=== PATIENT | male | born 1930 | race Caucasian/White ===

== ENCOUNTER 2016-11-26 15:31 | Inpatient (IN) | payer OTHER, MEDICARE ==
[2016-11-26 15:51] VITALS: BMI 19.6
[2016-11-26 16:00] LABS: BASOPHIL 0.7 % (0-2.0); EOSINOPHIL 0.3 % (0-4.5); MCH 29.7 pg (25.7-33.7); MCHC 33.7 g/dl (32.0-35.9); MEAN CELL VOLUME 88.2 fl (80-96); NEUTROPHILS 77.4 % (42.8-82.8); PLATELET COUNT 203 K/MM3 (134-434); RDW 13.8 % (11.9-15.9); WHITE BLOOD COUNT 4.1 K/mm3 (4.0-10.8)
--- NOTE | 2016-11-26 16:01 | PDOC ---
History of Present Illness - History of Present Illness Initial Comments: 11/26/16 16:47 Chief Complaint: difficulty swallowing. HPI: Patient was brought in to his PCP by his son. PCP, Dr. Peoples, noted the patient was hypotensive and sent him to the ED. Patient himself has no complaints other than difficulty swallowing and resulted dec oral intake. Difficulty swallowing has been present for a number of months, but the patient has refused further workup. ROS: difficulty swallowing, decreased oral intake of floods and fluids. Otherwise no fever or chills or other signs of infection. No chest or abd pain, no SOB. remainder of system reviewed negative PMHx: Chronic renal failure, on dialysis, dysphagia as noted above without characterization, dementia SHx: Patient lives by himself, takes care of himself, refuses to have assistance other than his family, has a son and grandson who visits regularly, responsible for his own meals, no known use of tobacco, alcohol or drugs. FHx: reviewed with son, is noncontributory to this illness. <Bindu To - Last Filed: 11/26/16 16:47> <Reji Cuevas - Last Filed: 11/27/16 08:05> - General Chief Complaint: Injury Stated Complaint: FALL Time Seen by Provider: 11/26/16 15:46 Past History <Bindu To - Last Filed: 11/26/16 16:47> - Past Medical History Anemia: No Asthma: No Cancer: No Cardiac Disorders: Yes (CHF,ATRIAL FIBRILLATION) CVA: No COPD: No CHF: No Dementia: No Diabetes: Yes (type II) Dialysis: Yes () GI Disorders: Yes Disorders: No HTN: Yes Hypercholesterolemia: Yes Liver Disease: No Seizures: No Thyroid Disease: No Other medical history: ESRD - Surgical History Abdominal Surgery: No Appendectomy: No Cardiac Surgery: No Cholecystectomy: No Lung Surgery: No Neurologic Surgery: No Orthopedic Surgery: No - Psycho/Social/Smoking Cessation Hx Anxiety: No Suicidal Ideation: No Smoking Status: No Smoking History: Unknown if ever smoked Number of Cigarettes Smoked Daily: 0 Hx Alcohol Use: No Drug/Substance Use Hx: No Substance Use Type: None Hx Substance Use Treatment: No <Reji Cuevas - Last Filed: 11/27/16 08:05> - Past Medical History Allergies/Adverse Reactions: Allergies Allergy/AdvReac Type Severity Reaction Status Date / Time Penicillins Allergy Intermediate rash Verified 11/26/16 15:40 Sulfa (Sulfonamide Allergy Intermediate rash Verified 11/26/16 15:40 Antibiotics) Home Medications: Ambulatory Orders Beta-Carotene(A) W-C and E/Min 1 tab PO DAILY 11/27/16 Metoprolol Succinate [Toprol Xl] 50 mg PO DAILY 11/27/16 Polyethylene Glycol 3350 [Miralax 255 gm Btl -] 17 grams PO DAILY 11/27/16 Simvastatin [Zocor -] 40 mg PO DAILY 11/27/16 Theragen 1 tablet PO DAILY 11/27/16 Warfarin Na [Coumadin -] 4 mg PO 11/27/16 Warfarin Na [Coumadin -] 5 mg PO 11/27/16 *Physical Exam - Vital Signs Last Vital Signs Temp Pulse Resp BP Pulse Ox 97.3 F L 93 H 18 97/55 100 11/26/16 15:34 11/26/16 16:32 11/26/16 15:34 11/26/16 16:32 11/26/16 15:34 <Bindu To A - Last Filed: 11/26/16 16:47> - Vital Signs Last Vital Signs Temp Pulse Resp BP Pulse Ox 97.3 F L 100 H 18 87/65 100 11/26/16 15:34 11/26/16 15:34 11/26/16 15:34 11/26/16 15:34 11/26/16 15:34 <Reji Cuevas - Last Filed: 11/27/16 08:05> ED Treatment Course - LABORATORY CBC & Chemistry Diagram: 11/26/16 15:49 11/26/16 15:49 - ADDITIONAL ORDERS Additional order review: Laboratory Results 11/26/16 15:49 INR 1.03 D 11/26/16 15:49 RBC 4.56 MCV 88.2 MCHC 33.7 RDW 13.8 MPV 9.0 Neutrophils % 77.4 Lymphocytes % 14.7 Monocytes % 6.9 Eosinophils % 0.3 Basophils % 0.7 <Bindu To - Last Filed: 11/26/16 16:47> - LABORATORY CBC & Chemistry Diagram: 11/26/16 15:49 11/26/16 15:49 <MasonReji - Last Filed: 11/27/16 08:05> Medical Decision Making - Medical Decision Making 11/26/16 16:34 Patient with dysphagia, difficulty swallowing for many months, has refused medical evaluation for this problem. Has been losing weight and regurgitating all by mouth intake. Brought by his son today to see primary physician who noted a low blood pressure and referred him to the emergency room patient's only complaint is difficulty swallowing. However, the son noticed some asymmetry of the lower face on the left which he thinks is new. The patient has continued to drive himself to dialysis and to ambulate without difficulty Patient has renal failure which is chronic and probably due to a combination of diabetes and high blood pressure. He has chronic atrial fibrillation. He has not seen his primary physician in over 2 years, according to his son, and although he is prescribed medication it is fairly certain that he has not obtain prescriptions in over a year and it is likely that he has not been taking his prescriptions as directed. He has been distraught over the recent [facility] placement of his . In addition, the patient tripped at home and fell against a table, injuring his left rib cage several days ago. He complains about pain over the anterior left rib cage and is tender to palpation, although there is no bruising and there is no crepitus or deformity. His lungs are clear. Remainder of physical exam, except for the left lower facial palsy and generalized weakness is negative. Evaluation of this complex patient is involves reassessment of his many medical and social problems Difficulty swallowing with decreased oral intake and regurgitation of most food and fluids. Has refused medical evaluation for this problem in the past, but today he agrees to undergo further testing Increasing inability to take care of himself at home. Lives alone, and has refused assistance by outside aids Has been driving himself to dialysis 3 times a week, the safety of which is uncertain Has been noncompliant with medications, including for atrial fibrillation, and noncompliant with medical follow-up, not having seen his primary physician in over 2 years Distraught over the recent [facility] placement of his , with subsequent significant depression Atrial fibrillation untreated Possible new left lower facial paralysis, TIA or CVA Chronic renal failure Bruised rib cage from a fall The hospitalist was contacted and admission was arranged. The patient will be placed on telemetry at [facility] when a bed becomes available to monitor his atrial fibrillation. His son's [facility] traffic [facility] specialist center was contacted, and agrees to accept the patient for cardiology consultation. This is Dr. Pastrana. The patient will receive his usual dialysis at [facility]. Head CT is pending because of the possible new neurologic deficit. Signed out to Dr. Barfield 7 PM pending transport. Has been stable up to this time. Patient's son has been present and fully informed <Reji Cuevas - Last Filed: 11/27/16 08:05> *DC/Admit/Observation/Transfer - Attestations Scribe Attestion: 11/26/16 16:47 Documentation prepared by Bindu To, acting as medical operations supervisor for Reji Marroquin MD. <Bindu To - Last Filed: 11/26/16 16:47> - Discharge Dispostion Admit: Yes <Reji Cuevas - Last Filed: 11/27/16 08:05> Diagnosis at time of Disposition: ESRD (end stage renal disease) on dialysis, Dehydration Atrial fibrillation Qualifiers: Atrial fibrillation type: chronic Qualified Code(s): I48.2 - Chronic atrial fibrillation CVA (cerebral vascular accident) Qualifiers: CVA mechanism: unspecified Qualified Code(s): I63.9 - Cerebral infarction, unspecified - Discharge Dispostion Condition at time of disposition: Guarded
[2016-11-26 16:42] LABS: INR 1.03 (0.82-1.09); PROTHROMBIN TIME (PATIENT) 11.5 SEC (10.2-13.0)
[2016-11-26 16:47] LABS: ALBUMIN 3.3 g/dl (3.5-5.0); ALK PHOS 129 U/L (32-92); ANION GAP 11 (8-16); BILIRUBIN,TOTAL 0.7 mg/dl (0.2-1.0); CALCIUM 9.3 mg/dl (8.4-10.2); CO2 28 mmol/L (22-28); CPK 100 IU/L (39-308); CREATININE 4.1 mg/dl (0.6-1.3); GLUCOSE,RANDOM 127 mg/dl (74-106); SGOT/AST 17 U/L (10-42); SGPT/ALT 13 U/L (10-40); TOT PROT 7.2 g/dl (6.4-8.3)
[2016-11-26 19:26] LABS: TROPONIN I (DFP) < 0.03 ng/ml (0.03-0.50)
[2016-11-26] MEDS ORDERED: SODIUM CHLORIDE 1,000 ML IV SCH (23:45)
--- NOTE | 2016-11-27 | HP ---
CHIEF COMPLAINT: hypotension [place]: [place] [facility] Chuck LudwigF F [phone] HISTORY OF PRESENT ILLNESS: This is an 86 year old male with a past medical history of ESRD/hemodialysis TThSa, Afib, CHF, HLD, DM2 who presented from his PCP office with hypotension. Pt and son report that he hasn't been to his PCP in over a year and has not taken his medications in "a long time". Pt reports that he has been having difficulty swallowing for months and that he is unable to talk in the morning and his mouth is often dry. He reports weight loss of 100 pounds. Son report that he noticed a new left sided facial droop. ER course was notable for: (1) BUN 38/Cr 4.1 (2) CT head with no acute bleed or infarct Recent Travel: pt denies PAST MEDICAL HISTORY: ESRD/dialysis Tu[facility] in [place] dementia?? HLD CHF Afib DM2 PAST SURGICAL HISTORY: L AV fistula Social History: Smoking: pt denies Alcohol: pt denies Drugs: pt denies Family History: mother , [place], unknown type, unknown age father age 50, car crash sister , heart 2 sisters alive and well Allergies Penicillins Allergy (Intermediate, Verified 11/26/16 15:40) rash Sulfa (Sulfonamide Antibiotics) Allergy (Intermediate, Verified 11/26/16 15:40) rash HOME MEDICATIONS: pt has not taken home medications in months Previous medications as follows: Beta-Carotene(A) W-C & E/Min [Ocuvite Tablet] 1 each PO DAILY #0 tablet Metoprolol Succinate [Toprol XL -] 50 mg PO DAILY #0 tab.sr.24h 07/13/13 Multivitamins Ther W-Minerals [Theragran-M -] 1 each PO DAILY #0 tablet Polyethylene Glycol 3350 [Miralax 255 gm Btl -] 17 gm PO DAILY #1 bottle Simvastatin [Zocor -] 40 mg PO DAILY #0 tablet 07/13/13 Warfarin Na [Coumadin -] 5 mg PO .SUN,MON,WED,FRI #0 tablet 07/13/13 Warfarin Na [Coumadin] 4 mg PO .THU,,SAT #0 tablet 07/13/13 REVIEW OF SYSTEMS CONSTITUTIONAL: Present: generalized weakness, malaise Absent: fever, chills, diaphoresis, loss of appetite, weight change HEENT: Absent: rhinorrhea, nasal congestion, throat pain, throat swelling, difficulty swallowing, mouth swelling, ear pain, eye pain, visual changes CARDIOVASCULAR: Absent: chest pain, syncope, palpitations, irregular heart rate, lightheadedness , peripheral edema RESPIRATORY: Absent: cough, shortness of breath, dyspnea with exertion, orthopnea, wheezing, stridor, hemoptysis GASTROINTESTINAL: Absent: abdominal pain, abdominal distension, nausea, vomiting, diarrhea, constipation, melena, hematochezia GENITOURINARY: Absent: dysuria, frequency, urgency, hesitancy, hematuria, flank pain, genital pain MUSCULOSKELETAL: Absent: myalgia, arthralgia, joint swelling, back pain, neck pain SKIN: Absent: rash, itching, pallor HEMATOLOGIC/IMMUNOLOGIC: Absent: easy bleeding, easy bruising, lymphadenopathy, frequent infections ENDOCRINE: Absent: unexplained weight gain, unexplained weight loss, heat intolerance, cold intolerance NEUROLOGIC: Present: difficulty swallowing Absent: headache, focal weakness or paresthesias, dizziness, unsteady gait, seizure, mental status changes, bladder or bowel incontinence PSYCHIATRIC: Absent: anxiety, depression, suicidal or homicidal ideation, hallucinations. PHYSICAL EXAMINATION Vital Signs - 24 hr 3 11/26/16 11/26/16 11/26/16 11/26/16 15:34 16:32 18:12 19:31 Temperature 97.3 F L Pulse Rate 100 H Pulse Rate [ 93 H 86 89 Apical] Respiratory 18 Rate Blood Pressure 87/65 Blood Pressure 97/55 106/63 98/78 [Right Arm] O2 Sat by Pulse 100 Oximetry (%) GENERAL: Awake, alert, and fully oriented, in no acute distress. HEAD: Normal with no signs of trauma. EYES: Pupils equal, round and reactive to light, extraocular movements intact, sclera anicteric, conjunctiva clear. No lid lag. EARS, NOSE, THROAT: Ears normal, nares patent, oropharynx clear without exudates. Dry mucous membranes. NECK: Normal range of motion, supple without lymphadenopathy, JVD, or masses. LUNGS: Breath sounds equal, clear to auscultation bilaterally. No wheezes, and no crackles. No accessory muscle use. HEART: Regular rate and rhythm, normal S1 and S2 without rub or gallop. + murmur 2/6 5th ICS, MCL ABDOMEN: Soft, nontender, not distended, normoactive bowel sounds, no guarding, no rebound, no masses. No hepatomegaly or splenomegaly. MUSCULOSKELETAL: Normal range of motion at all joints. No bony deformities or tenderness. No CVA tenderness. UPPER EXTREMITIES: 2+ pulses, warm, well-perfused. No cyanosis. No clubbing. No peripheral edema. LOWER EXTREMITIES: 2+ pulses, warm, well-perfused. No calf tenderness. No peripheral edema. NEUROLOGICAL: Cranial nerves II-XII intact. Normal speech. Normal gait. PSYCHIATRIC: Cooperative. Good eye contact. Appropriate mood and affect. SKIN: Warm, dry, normal turgor, no rashes or lesions noted, normal capillary refill. Laboratory Results - last 24 hr 3 11/26/16 11/26/16 11/26/16 15:49 15:49 15:49 WBC 4.1 RBC 4.56 Hgb 13.6 D Hct 40.3 D MCV 88.2 MCH 29.7 MCHC 33.7 RDW 13.8 Plt Count 203 D MPV 9.0 Neutrophils % 77.4 Lymphocytes % 14.7 Monocytes % 6.9 Eosinophils % 0.3 Basophils % 0.7 INR 1.03 D Sodium 136 Potassium 3.9 Chloride 97 L Carbon Dioxide 28 Anion Gap 11 BUN 38 H D Creatinine 4.1 H D Creat Clearance w eGFR 13.87 Random Glucose 127 H Calcium 9.3 Total Bilirubin 0.7 AST 17 ALT 13 D Alkaline Phosphatase 129 H D Creatine Kinase 100 Troponin I < 0.03 L Total Protein 7.2 Albumin 3.[address] head without contrast IMAGES: 77 DATE OF SERVICE: 2016-11-26 18:07:55 THIS IS A PRELIMINARY REPORT FROM [facility] HISTORY:Questionable new lower facial left. COMPARISON: None. TECHNIQUE: 4.5 mm axial images from the skull base to the vertex. FINDINGS: There are infarcts in the right basal ganglia that appear to be chronic. White matter changes are most 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 There is no evidence of acute intracranial process, intracranial hemorrhage or mass effect. Ventricular size is concordant with the degree of atrophy. The visualized portions of the orbits, paranasal and mastoid sinuses are unremarkable. IMPRESSION: 1. 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 If there is a clinical suspicion of acute cerebral ischemia, MRI of the brain or short-term followup CT imaging may be helpful for further evaluation. THIS DOCUMENT HAS BEEN ELECTRONICALLY SIGNED Temitope Camacho MD 11/26/2016 21:17 EST ECG Afib, rate 92, QTC 464 T wave inversion 2, 3, aVF, V4-V6, unchanged when compared to previous ECG ASSESSMENT/PLAN: 86yM with PMH ESRD/dialysis, CHF, Afib, HLD, DM2 presented to the ED from his PCP office with hypotension. Pt is being admitted for further evaluation. Hypotension - Pt appears dry. Will give NS 250mL bolus x 1 - pt likely not taking in enough po Dysphagia - subjective as per pt, will obtain ST consult left sided droop - as per son, not clinically obvious to me - CT head prelim read with old infarcts, findings similar to read in 2014 - consider neuro consult ESRD - renal consult, pt used to be followed by Dr. Guillen, will consult Dr. Alcantar Atrial fibrillation - pt reports that he was taken off coumadin but is unclear why - cardiology consult - rate controlled off meds, will not restart given hypotension. CHF - appears dry, no echo in system since 2012, will order same. DVT PPX - heparin 5000u BID, monitor platelets, h/o count in low 100s FEN - NS bolus 250 x 1, hold continuous IVF as pt is a dialysis pt - BMP in am - soft diet pending ST consult Dispo: Pt currently requires inpatient management of his current condition Visit type - Emergency Visit Emergency Visit: Yes Care time: The patient presented to the Emergency Department on the above date and was hospitalized for further evaluation of their emergent condition. - New Patient This patient is new to me today: Yes Date on this admission: 11/27/16 - Critical Care Critical Care patient: No
[2016-11-27] MEDS ORDERED: SODIUM CHLORIDE 250 ML IV STA (00:48)
[2016-11-27] MEDS: HEPARIN NA (PORCINE) 5,000 UNITS/ML 1ML VIAL SQ SCH ×3 (00:56→22:55)
[2016-11-27 08:02] LABS: BASOPHIL 0.9 % (0-2.0); EOSINOPHIL 3.6 % (0-4.5); MCH 30.5 pg (25.7-33.7); MCHC 33.7 g/dl (32.0-35.9); MEAN CELL VOLUME 90.6 fl (80-96); NEUTROPHILS 59.3 % (42.8-82.8); PLATELET COUNT 173 K/MM3 (134-434); RDW 14.6 % (11.9-15.9); WHITE BLOOD COUNT 2.6 K/mm3 (4.0-10.0)
[2016-11-27 08:19] LABS: ALBUMIN 2.5 g/dl (3.4-5.0); ALK PHOS 120 U/L (45-117); ANION GAP 7 (8-16); BILIRUBIN,TOTAL 0.7 mg/dL (0.2-1.0); CALCIUM 8.4 mg/dL (8.5-10.1); CO2 29 mmol/L (21-32); CREATININE 4.5 mg/dL (0.7-1.3); GLUCOSE,RANDOM 61 mg/dL (74-106); MAGNESIUM 2.4 mg/dL (1.8-2.4); PHOSPHOROUS 1.9 mg/dL (2.5-4.9); SGOT/AST 9 U/L (15-37); SGPT/ALT 12 U/L (12-78); TOT PROT 5.7 g/dl (6.4-8.2)
[2016-11-27 08:50] LABS: INR 1.15 (0.82-1.09); PROTHROMBIN TIME (PATIENT) 12.7 SEC (9.98-11.88)
--- NOTE | 2016-11-27 09:15 | CON.CARD ---
Consult Consult Specialty:: Cardiology Referred by:: Hospitalist Reason for Consultation:: afib, hypotension - History of Present Illness Chief Complaint: sent by PMD for hypotension History of Present Illness: 86 year old man with a history of ESRD on HD, Afib not on AC for over a year ( pt states stopped by a delivery and mail sorter but he does not know why), HTN, DMII, sent to ER yesterday by his PMD Dr. Peoples for hypotension, dysphagia, weight loss Pt was seen and examined today in nad. He denies any current complaints. denies having any chest pain, sob, palpitations. no pnd, orthopnea, or LE edema. States he has not been on any medication for the past year. - History Source History Provided By: Patient, Family Member, Medical Record Limitations to Obtaining History: No Limitations - Past Medical History Cardio/Vascular: Yes: AFIB, CAD, HTN, Hyperlipdemia Renal/: Yes: Hemodialysis - Alcohol/Substance Use Hx Alcohol Use: No - Smoking History Smoking history: Unknown if ever smoked Have you smoked in the past 12 months: No Aproximately how many cigarettes per day: 0 - Social History Usual Living Arrangement: Alone ADL: Family Assistance History of Recent Travel: No Home Medications - Allergies Allergies/Adverse Reactions: Allergies Allergy/AdvReac Type Severity Reaction Status Date / Time Penicillins Allergy Intermediate rash Verified 11/26/16 15:40 Sulfa (Sulfonamide Allergy Intermediate rash Verified 11/26/16 15:40 Antibiotics) - Home Medications Home Medications: Ambulatory Orders Beta-Carotene(A) W-C and E/Min 1 tab PO DAILY 11/27/16 Metoprolol Succinate [Toprol Xl] 50 mg PO DAILY 11/27/16 Polyethylene Glycol 3350 [Miralax 255 gm Btl -] 17 grams PO DAILY 11/27/16 Simvastatin [Zocor -] 40 mg PO DAILY 11/27/16 Theragen 1 tablet PO DAILY 11/27/16 Warfarin Na [Coumadin -] 4 mg PO 11/27/16 Warfarin Na [Coumadin -] 5 mg PO 11/27/16 Family Disease History - Family Disease History Family History: Denies Review of Systems - Review of Systems Constitutional: reports: Loss of Appetite, Malaise, Unintentional Wgt. Loss, Weakness. denies: No Symptoms, Chills, Diaphoresis, Fever, Lethargy, Night Sweats, Other Eyes: denies: No Symptoms, Blind Spots, Blurred Vision, Double Vision, Eye Pain , Floaters, Photophobia, Recent Change in Vision, Other HENT: denies: No Symptoms, Difficult Swallowing, Ear Discharge, Ear Pain, Epistaxis, Gingival Bleeding, Hearing Loss, Mouth Swelling, Nasal Congestion, Ocular Prosthesis, Throat Pain, Toothache, Ringing in Ears, Other Neck: denies: No Symptoms, Decreased ROM, Lumps, Pain on Movement, Stiffness, Swollen Glands, Tenderness, Other Cardiovascular: denies: No Symptoms, Chest Pain, Edema, Palpitations, Shortness of Breath, Other Respiratory: denies: No Symptoms, Cough, Exercise Intolerance, Hemoptysis, Orthopnea, PND, Snoring, SOB, SOB on Exertion, Wheezing, Other Gastrointestinal: reports: Dysphagia. denies: No Symptoms, Abdominal Pain, Bloating, Constipation, Diarrhea, Indigestion, Melena, Nausea, Rectal Bleeding, Vomiting, Vomiting Blood, Other Genitourinary: denies: No Symptoms, Burning, Discharge, Dysuria, Flank Pain, Frequency, Hematuria, Incontinence, Lesions, Menses, Pain, Testicular Mass, Testicular Pain, Testicular Swelling, Urgency, Vaginal Bleeding, Other Breasts: denies: No Symptoms Reported, See HPI, Breast Implants, Discharge from Nipple, Lumps, Pain, Skin Changes, Other Musculoskeletal: reports: Other (rib cage pain). denies: No Symptoms, Back Pain , Crepitus, Decreased ROM, Extremity Pain, Joint Pain, Joint Swelling, Muscle Pain, Muscle Cramps, Muscle Weakness Integumentary: denies: No Symptoms, Blister, Bruising, Change in Color, Eczema, Erythema, Incision, Lesions, Lump, Pallor, Pruritis, Rash, Wound, Other Neurological: denies: No Symptoms, Change in LOC, Change in Speech, Confusion, Dizziness, Headache, Incoordination, Numbness, Parasthesia, Pre-Existing Deficit , Seizure, Syncope, Tremors, Unsteady Gait, Weakness, Other Endocrine: denies: No Symptoms, Excessive Sweating, Flushing, Increased Hunger, Increased Thirst, Intolerance to Cold, Intolerance to Heat, Unexplained Weight Gain, Unexplained Weight Loss, Other Hematology/Lymphatic: denies: No Symptoms, Easily Bruised, Excessive Bleeding, Swollen Glands, Other Psychiatric: denies: No Symptoms, Altered Sleep Pattern, Anxiety, Depression, Hallucinations, Panic, Paranoia, Suicidal, Other - Risk Factors Known Risk Factors: Yes: Age, Hypercholesterolemia, Hypertension Vital Signs: Vital Signs Temperature 98.1 F 11/27/16 05:53 Pulse Rate 74 11/27/16 05:53 Respiratory Rate 18 11/27/16 05:53 Blood Pressure 92/57 11/27/16 05:53 O2 Sat by Pulse Oximetry (%) 93 L 11/26/16 22:00 Constitutional: Yes: No Distress, Calm, Thin Eyes: Yes: Conjunctiva Clear, EOM Intact, PERRL HENT: Yes: Atraumatic, Normocephalic Neck: Yes: Supple, Trachea Midline Respiratory: Yes: Regular, CTA Bilaterally. No: Rales, Rhonchi, Wheezes Gastrointestinal: Yes: Normal Bowel Sounds, Soft. No: Distention, Tenderness Cardiovascular: Yes: Pulse Irregular. No: Regular Rate and Rhythm, Bradycardia , Tachycardia, Gallop, Rub, Varicosities JVD: No Carotid Bruit: No PMI: Non-Displaced Heart Sounds: Yes: S1, S2. No: Split S2, S3, S4, Clicks, Gallop, Rub, Bruit Murmur: Yes: Systolic Murmur. No: Diastolic Murmur Musculoskeletal: Yes: Muscle Weakness Extremities: Yes: WNL Edema: No Peripheral Pulses WNL: Yes Peripheral Pulses: 2+ Left Doralis Pedis, 2+ Right Dorsalis Pedis Integumentary: Yes: WNL Neurological: Yes: Alert, Oriented Psychiatric: Yes: Alert, Oriented - Other Data Labs, Other Data: CBC, BMP 11/27/16 06:00 11/27/16 06:00 INR, PTT INR 1.15 (0.82-1.09) H 11/27/16 06:00 ekg-AF 92bpm, Nonspecific St abnl, st depression V4-V6, II, III, avf Echo: Report Reviewed Imaging - Results Chest X-ray: Report Reviewed, Image Reviewed EKG: Report Reviewed, Image Reviewed Other: Report Reviewed, Image Reviewed (tele-Af hr adeuately controlled, pvcs) Assessment/Plan 86 year old man with a history of ESRD on HD, Afib not on AC for over a year ( pt states stopped by a delivery and mail sorter but he does not know why), , HTN, DMII, sent to ER yesterday by his PMD Dr. Peoples for hypotension, dysphagia, weight loss Afib-chronic -HR adequately controlled without AV vishnu blockers -pt states he was taken off AC in the past but not sure why -need to further consider the risk vs benefit of full AC, given advanced age and recent fall would hold off for now Hypotension-unclear etiology -likely intravascular depletion secondary to poor po intake -received IVF hydration -avoid anti-HTN medications -no obvious infection present -f/up echo Aortic stenosis-mild in 2013 -f/up echo today Dysphagia -swallow evaluation
--- NOTE | 2016-11-27 10:51 | CONSULT ---
Admitting History and Physical - Primary Care Physician PCP: Cindy Solis - Admission History of Present Illness: Per EMR: "HISTORY OF PRESENT ILLNESS: This is an 86 year old male with a past medical history of ESRD/hemodialysis TThSa, Afib, CHF, HLD, DM2 who presented from his PCP office with hypotension. Pt and son report that he hasn't been to his PCP in over a year and has not taken his medications in "a long time". Pt reports that he has been having difficulty swallowing for months and that he is unable to talk in the morning and his mouth is often dry. He reports weight loss of 100 pounds. Son report that he noticed a new left sided facial droop." History Source: Patient, Medical Record Limitations to Obtaining History: Clinical Condition (forgetful) - Past Medical History Cardiovascular: Yes: AFIB, CAD, HTN, Hyperlipdemia Renal/: Yes: Hemodialysis Heme/Onc: Yes: Anemia - Smoking History Smoking history: Unknown if ever smoked Have you smoked in the past 12 months: No Aproximately how many cigarettes per day: 0 - Alcohol/Substance Use Hx Alcohol Use: No History - Admission Reason For Visit: ESRD ON DIALYSIS - Diagnostics CT Scan: Report Reviewed (CT head without contrast IMAGES: 77 DATE OF SERVICE : 2016-11-26 18:07:55 THIS IS A PRELIMINARY REPORT FROM [facility] HISTORY:Questionable new lower facial left. COMPARISON: None. TECHNIQUE: 4.5 mm axial images from the skull base to the vertex. FINDINGS: There are infarcts in the right basal ganglia that appear to be chronic. White matter changes are most 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 There is no evidence of acute intracranial process, intracranial hemorrhage or mass effect. Ventricular size is concordant with the degree of atrophy. The visualized portions of the orbits, paranasal and mastoid sinuses are unremarkable. IMPRESSION: 1. 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 If there is a clinical suspicion of acute cerebral ischemia, MRI of the brain or short-term followup CT imaging may be helpful for further evaluation.) - General Mental Status: Awake and Alert, Able to Follow Commands, Forgetful Attention: Intact Ability to Follow Directions: Good Head/Neck Control: Fair - Hearing Hearing: Impaired Hearing Aide: No With Patient: No Speech Evaluation - Communication Primary Language: BENGALI Communication: Yes: Within Normal Limits Oral Expression Ability: Yes: Mild Impairment - Speech Production Able to Make Needs Known: Yes: WNL, Mildly Impaired Intelligibility: Yes: Mildly Impaired (Pt reports aphonic in am."No voice" on phone.) - Speech Characteristics Voice Loudness: Mildly Soft/Quiet Voice Pitch: Yes: Normal Voice Phonatory-based Quality: Yes: Dysphonia (intermittent) Speech Pattern: Normal Nasal Resonance: Normal Articulation: Yes: Precise Rate of Speech: Intact - Language/Auditory Comprehension Follows: Yes: 1 Stage Simple Commands - Language/Verbal Expression Able to Respond to Simple Queries: Yes: WNL Able to Communicate Wants and Needs: Yes: WNL Functional Communication Status: Yes: WNL - Swallow Evaluation/Bedside Assessment Current Nutritional Intake: Soft, Thin Liquids Oral Secretions: Yes: WFL Dentition: Yes: Adequate, Missing Teeth Facial Symmetry at Rest: Facial Droop Left Facial Symmetry on Retraction: Facial Droop Left (slight) Against Resistance Opening: Weak Against Resistance Closing: Weak Pucker Lips: Normal Smile: Normal Lingual Movement: Normal, Symmetric Lingual Speed of Movement: Normal Lingual Movement Strgth Against Opposition: Normal Lingual Movement Characteristics: Normal Velopharyngeal Movement: Normal Laryngeal Elevation: Impaired Laryngeal Movement: Reduced Excursion, Labored,delay initiation, Reduced Velocity Labial Seal: WFL Oral Prep Time: WFL A-P Transit: WFL Pocketing: None Timing of Swallow: Delayed Coughing/Throat Clear: Yes Change in Voice: No Recommendations - Speech Evaluation, Impression/Plan Impression: Left facial.Intermittent dysphonia. Labored laryngeal initiation with reduced layngeal rate and excursion. Multiple swallows generted with 1/2 tp of puree, with pt reporting stsis in pharynx. Suspeced improved clearance with f/u of nectar thick liquid, although again multiple swalo generated, indicative of residue nd impaired laryngeal swallow function. Weak cough, unprotective. Responsive weak cough with thin liquid. Pt denies h/o PNA. 100 lb weightloss. Dysphagia x 3-4 mths. denies previous w/u by sp path, GI,ENT. Denies changes in ambulation, ue/le weakness, etc. - Dysphagia Impressions/Plan Swallowing Skills: Impaired Dysphagia Impressions: Moderate Impairment, Ongoing Evaluation, Suspect Aspiration *Silent aspiration: cannot be R/O at bedside Dysphagia Treatment Plan: Chin Tuck/Down, Safe Rate, OOB for meals, OOB for 1 h. after meals, Other (Remind pt to swallow HARD, 2-3 x's per 1/2 tsp, alternate with sip of nectar thick liquid. Crush meds and give with nectar thick. No continuous drinking. No straws.) Recommendations: MBS w Esophagus (Flouroscopy equipment is broken.Pending repair.) - Recommendations Diet Consistency: Dysphagia Pureed Medication Administration: Crushed with applesauce Liquids: [place] Thick Supplement: Nepro (this is nectar thick.)
--- NOTE | 2016-11-27 13:40 | CONSULT ---
Consult - text type - Consultation Consultation Note: Neurology HISTORY OF PRESENT ILLNESS: This is an 86 year old male with a past medical history of ESRD/hemodialysis TThSa, Afib, CHF, HLD, DM2 who presented from his PCP office with hypotension. Pt and son report that he hasn't been to his PCP in over a year and has not taken his medications in "a long time". Pt reports that he has been having difficulty swallowing for months and that he is unable to talk in the morning and his mouth is often dry. He reported weight loss of 100 pounds. Son report that he noticed a new left sided facial droop. In speaking with the patient, he does not notice a different in his face but he has visible left lower quadrant droop of face, upper quadrant does not appear to be impaired when asked for furrow in brow. 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 He has multiple risk factors including AFib, HLD, DM2 and this may be 2/2 to CVA that was not noticed earlier. Not likely Sullivan's Palsy as it does not effect upper quadrant of face. PAST MEDICAL HISTORY: ESRD/dialysis [facility] in [facility]?? HLD CHF Afib DM2 PAST SURGICAL HISTORY: L AV fistula Social History: Smoking: pt denies Alcohol: pt denies Drugs: pt denies Family History: mother , [place], unknown type, unknown age father age 50, car crash sister , heart 2 sisters alive and well Allergies Penicillins Allergy (Intermediate, Verified 11/26/16 15:40) rash Sulfa (Sulfonamide Antibiotics) Allergy (Intermediate, Verified 11/26/16 15:40) rash Home Medication List Medication Instructions Recorded Confirmed Type Beta-Carotene(A) W-C and E/Min 1 tab PO DAILY 11/27/16 11/27/16 History Metoprolol Succinate [Toprol Xl] 50 mg PO DAILY 11/27/16 11/27/16 History Polyethylene Glycol 3350 [Miralax 17 grams PO DAILY 11/27/16 11/27/16 History 255 gm Btl -] Simvastatin [Zocor -] 40 mg PO DAILY 11/27/16 11/27/16 History Theragen 1 tablet PO DAILY 11/27/16 11/27/16 History Warfarin Na [Coumadin -] 4 mg PO 11/27/16 History Warfarin Na [Coumadin -] 5 mg PO 11/27/16 History Active Medications Generic Name Dose Route Start Last Admin Trade Name Freq PRN Reason Stop Dose Admin Heparin Sodium (Porcine) 5,000 unit 11/26/16 22:00 11/27/16 10:35 Heparin - SQ 5,000 unit BID YVETTE Administration REVIEW OF SYSTEMS CONSTITUTIONAL: Present: generalized weakness, malaise Absent: fever, chills, diaphoresis, loss of appetite, weight change HEENT: Absent: rhinorrhea, nasal congestion, throat pain, throat swelling, difficulty swallowing, mouth swelling, ear pain, eye pain, visual changes CARDIOVASCULAR: Absent: chest pain, syncope, palpitations, irregular heart rate, lightheadedness , peripheral edema RESPIRATORY: Absent: cough, shortness of breath, dyspnea with exertion, orthopnea, wheezing, stridor, hemoptysis GASTROINTESTINAL: Absent: abdominal pain, abdominal distension, nausea, vomiting, diarrhea, constipation, melena, hematochezia GENITOURINARY: Absent: dysuria, frequency, urgency, hesitancy, hematuria, flank pain, genital pain MUSCULOSKELETAL: Absent: myalgia, arthralgia, joint swelling, back pain, neck pain SKIN: Absent: rash, itching, pallor HEMATOLOGIC/IMMUNOLOGIC: Absent: easy bleeding, easy bruising, lymphadenopathy, frequent infections ENDOCRINE: Absent: unexplained weight gain, unexplained weight loss, heat intolerance, cold intolerance NEUROLOGIC: Present: difficulty swallowing Absent: headache, focal weakness or paresthesias, dizziness, unsteady gait, seizure, mental status changes, bladder or bowel incontinence PSYCHIATRIC: Absent: anxiety, depression, suicidal or homicidal ideation, hallucinations. PHYSICAL EXAMINATION Vital Signs - 24 hr 3 11/26/16 11/26/16 11/26/16 11/26/16 15:34 16:32 18:12 19:31 Temperature 97.3 F L Pulse Rate 100 H Pulse Rate [ 93 H 86 89 Apical] Respiratory 18 Rate Blood Pressure 87/65 Blood Pressure 97/55 106/63 98/78 [Right Arm] O2 Sat by Pulse 100 Oximetry (%) GENERAL: Awake, alert, and fully oriented, in no acute distress. HEAD: Normal with no signs of trauma. EYES: Pupils equal, round and reactive to light, extraocular movements intact, sclera anicteric, conjunctiva clear. No lid lag. EARS, NOSE, THROAT: Ears normal, nares patent, oropharynx clear without exudates. Dry mucous membranes. NECK: Normal range of motion, supple without lymphadenopathy, JVD, or masses. LUNGS: Breath sounds equal, clear to auscultation bilaterally. No wheezes, and no crackles. No accessory muscle use. HEART: Regular rate and rhythm, normal S1 and S2 without rub or gallop. + murmur 2/6 5th ICS, MCL ABDOMEN: Soft, nontender, not distended, normoactive bowel sounds, no guarding, no rebound, no masses. No hepatomegaly or splenomegaly. MUSCULOSKELETAL: Normal range of motion at all joints. No bony deformities or tenderness. No CVA tenderness. UPPER EXTREMITIES: 2+ pulses, warm, well-perfused. No cyanosis. No clubbing. No peripheral edema. LOWER EXTREMITIES: 2+ pulses, warm, well-perfused. No calf tenderness. No peripheral edema. NEUROLOGICAL: L facial droop, difficulty in speech, GARRY, EOMI, sensory intact , strength grossly intact PSYCHIATRIC: Cooperative. Good eye contact. Appropriate mood and affect. SKIN: Warm, dry, normal turgor, no rashes or lesions noted, normal capillary refill. CBCD WBC 2.6 K/mm3 (4.0-10.0) L D 11/27/16 06:00 RBC 3.83 M/mm3 (4.00-5.60) L 11/27/16 06:00 Hgb 11.7 GM/dL (11.7-16.9) 11/27/16 06:00 Hct 34.7 % (35.4-49) L 11/27/16 06:00 MCV 90.6 fl (80-96) 11/27/16 06:00 MCHC 33.7 g/dl (32.0-35.9) 11/27/16 06:00 RDW 14.6 % (11.9-15.9) 11/27/16 06:00 Plt Count 173 K/MM3 (134-434) D 11/27/16 06:00 MPV 9.0 fl (7.5-11.1) 11/27/16 06:00 CMP Sodium 140 mmol/L (136-145) 11/27/16 06:00 Potassium 3.7 mmol/L (3.5-5.1) 11/27/16 06:00 Chloride 104 mmol/L (98-107) 11/27/16 06:00 Carbon Dioxide 29 mmol/L (21-32) 11/27/16 06:00 Anion Gap 7 (8-16) L 11/27/16 06:00 BUN 41 mg/dL (7-18) H 11/27/16 06:00 Creatinine 4.5 mg/dL (0.7-1.3) H 11/27/16 06:00 Creat Clearance w eGFR 12.46 (>60) 11/27/16 06:00 Calcium 8.4 mg/dL (8.5-10.1) L 11/27/16 06:00 Total Bilirubin 0.7 mg/dL (0.2-1.0) D 11/27/16 06:00 AST 9 U/L (15-37) L D 11/27/16 06:00 ALT 12 U/L (12-78) D 11/27/16 06:00 Alkaline Phosphatase 120 U/L (45-117) H D 11/27/16 06:00 Total Protein 5.7 g/dl (6.4-8.2) L 11/27/16 06:00 Albumin 2.5 g/dl (3.4-5.0) L D 11/27/16 06:[address] head without contrast Infarcts right basal ganglia that appear to be chronic and white matter changes most 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 If there is a clinical suspicion of acute cerebral ischemia, MRI of the brain or short-term followup CT imaging may be helpful for further evaluation. ASSESSMENT/PLAN: 86 year old male with a past medical history of ESRD/hemodialysis TThSa, Afib, CHF, HLD, DM2 who presented from his PCP office with hypotension. Pt and son report that he hasn't been to his PCP in over a year and has not taken his medications in "a long time". Pt reports that he has been having difficulty swallowing for months and that he is unable to talk in the morning and his mouth is often dry. He reported weight loss of 100 pounds. Son report that he noticed a new left sided facial droop. In speaking with the patient, he does not notice a different in his face but he has visible left lower quadrant droop of face, upper quadrant does not appear to be impaired when asked for furrow in brow. 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 He has multiple risk factors including AFib, HLD, DM2 and this may be 2/2 to CVA that was not noticed earlier. Not likely Sullivan's Palsy as it does not effect upper quadrant of face. Recommend risk factor minimization, maintain normal glycemic index. BP range 120 -140 systolic, optimize LDL (goal <70). Would recommend speech/swallow therapy. Facial exercises may be of some benefit. Pt with Afib but not on AC (says it was stopped for dialysis) and would re-evaluate need for AC. Currently rate controled. MRI not likely to be clinically helpful as CVA noted on CT head and is chronic, not acute, on imaging. Continue HD but monitor BP closely and avoidance of hypotensive episodes.
[2016-11-27] MEDS ORDERED: HEPARIN NA (PORCINE) 5,000 UNITS/ML 1ML VIAL IVPUSH ONE (14:39)
[2016-11-27] MEDS: HEPARIN NA (PORCINE) 5,000 UNITS/ML 1ML VIAL IVPUSH SCH ×3 (14:45→16:45)
--- NOTE | 2016-11-27 14:50 | PN ---
Progress Note (short form) - Note Progress Note: Subjective: The patient was seen and examined at the bedside, he reports feeling good today. Left facial droop on exam. Patient reports "I have had that for some time, but I am a bad historian". Neuro consult appreciated Awaiting call back from Dr. Peoples to see if patient had droop on recent exam Current Medications Generic Name Dose Route Start Last Admin Trade Name Frejonathan PRN Reason Stop Dose Admin Heparin Sodium (Porcine) 5,000 unit 11/26/16 22:00 11/27/16 10:35 Heparin - SQ 5,000 unit BID YVETTE Administration Objective: Vital Signs Period Temp Pulse Resp BP Sys/Luo Pulse Ox Last 24 Hr 97.3 F-98.1 F 74-100 18-18 87-106/55-78 93-100 Physical Exam: General: Thin, NAD Lungs: CTA bilaterally Heart: Irregular rhythm, S1S2 Abd: Soft, non-tender, non-distended. Normoactive bowel sounds Ext: Thin, warm. 2+ DP/PT bilaterally Neuro: Left mouth droop. Difficulty in speech. Forehead not affected. 4/5 muscle strength equal/bilateral CBCD WBC 2.6 K/mm3 (4.0-10.0) L D 11/27/16 06:00 RBC 3.83 M/mm3 (4.00-5.60) L 11/27/16 06:00 Hgb 11.7 GM/dL (11.7-16.9) 11/27/16 06:00 Hct 34.7 % (35.4-49) L 11/27/16 06:00 MCV 90.6 fl (80-96) 11/27/16 06:00 MCHC 33.7 g/dl (32.0-35.9) 11/27/16 06:00 RDW 14.6 % (11.9-15.9) 11/27/16 06:00 Plt Count 173 K/MM3 (134-434) D 11/27/16 06:00 MPV 9.0 fl (7.5-11.1) 11/27/16 06:00 CMP Sodium 140 mmol/L (136-145) 11/27/16 06:00 Potassium 3.7 mmol/L (3.5-5.1) 11/27/16 06:00 Chloride 104 mmol/L (98-107) 11/27/16 06:00 Carbon Dioxide 29 mmol/L (21-32) 11/27/16 06:00 Anion Gap 7 (8-16) L 11/27/16 06:00 BUN 41 mg/dL (7-18) H 11/27/16 06:00 Creatinine 4.5 mg/dL (0.7-1.3) H 11/27/16 06:00 Creat Clearance w eGFR 12.46 (>60) 11/27/16 06:00 Random Glucose 61 mg/dL (74-106) L D 11/27/16 06:00 Calcium 8.4 mg/dL (8.5-10.1) L 11/27/16 06:00 Total Bilirubin 0.7 mg/dL (0.2-1.0) D 11/27/16 06:00 AST 9 U/L (15-37) L D 11/27/16 06:00 ALT 12 U/L (12-78) D 11/27/16 06:00 Alkaline Phosphatase 120 U/L (45-117) H D 11/27/16 06:00 Total Protein 5.7 g/dl (6.4-8.2) L 11/27/16 06:00 Albumin 2.5 g/dl (3.4-5.0) L D 11/27/16 06:00 CARDIAC ENZYMES Creatine Kinase 100 IU/L (39-308) 11/26/16 15:49 Troponin I < 0.03 ng/ml (0.03-0.50) L 11/26/16 15:49 Assessment: This is an 86 year old male with PMHx of ESRD on HD (,,), A.fib (not on AC), CHF, hyperlipidemia, who presented to the ED from his primary care provider's office for hypotension. Plan: 1) Neuro: Left facial droop, new vs. 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 - Patient has a.fib but not on anticoagulation - Patient reports dysphagia, f/u modified barium swallow - Awaiting call back from Dr. Peoples re: new facial droop - Appreciate swallow evaluation - Appreciate neuro consult 2) Cardiology: Chronic a.fib - Unknown why patient was taken off anticoagulation - Defer starting AC to cardiology Hypotension - Unknown etiology - Hold Toprol XL - No clear source of infection - F/u ECHO - Appreciate cardiology consult 3) : ESRD - Continue HD as scheduled - Appreciate nephrology consult 4) Endocrine: DM? - Not on home medications - Past HgbA1c wnl - F/u HgbA1c - Hold off on ISS 5) F/E/N: - Dysphagia pureed diet - Monitor electrolytes 6) Prophylaxis: - Heparin 5,000u sq bid - PT request 7) Dispo: - Requires continued inpatient care CODE STATUS: FULL CODE Visit type - Emergency Visit Emergency Visit: Yes ED Registration Date: 11/26/16 Care time: The patient presented to the Emergency Department on the above date and was hospitalized for further evaluation of their emergent condition. - New Patient This patient is new to me today: Yes Date on this admission: 11/27/16 - Critical Care Critical Care patient: No
--- NOTE | 2016-11-27 15:38 | EKG ---
Test Reason : Blood Pressure : / mmHG Vent. Rate : 092 BPM Atrial Rate : 093 BPM P-R Int : 000 ms QRS Dur : 098 ms QT Int : 376 ms P-R-T Axes : 000 074 239 degrees QTc Int : 464 ms ATRIAL FIBRILLATION NONSPECIFIC ST AND T WAVE ABNORMALITY PROLONGED QT ABNORMAL ECG WHEN COMPARED WITH ECG OF 12-JUL-2013 10:00, Q wave now present in aVL and decreased R wave amplitude in lead I Confirmed by ARIELA GOYAL MD ([id number]) on 11/27/2016 3:38:08 PM Referred By: MD SALEH Confirmed By:ARIELA GOYAL MD
--- NOTE | 2016-11-27 17:28 | CONSULT ---
Consult Consult Specialty:: Nephrology Reason for Consultation:: ESRD - History of Present Illness Chief Complaint: sent in from PCP for hypotension History of Present Illness: Pt is an 86 year old male with pmhx of ESRD on HD TTS who was sent in from his PCP's office for hypotension. Pt has had difficulty swallowing and has had decreased PO intake. He has had this problem for several months but has refused workup. He has lost weight but could not quantify the amount. I was called to evaluate him for HD. He dialyzies at [facility]. I called and discussed his prescription. They told me he does runn low blood pressures. He denies chest pain or palpitations. He denies fevers or chills. - History Source History Provided By: Patient, Medical Record - Past Medical History Cardio/Vascular: Yes: AFIB, CAD, HTN, Hyperlipdemia Renal/: Yes: Hemodialysis - Past Surgical History Past Surgical History: Yes: AV Fistula/Graft - Alcohol/Substance Use Hx Alcohol Use: No - Smoking History Smoking history: Unknown if ever smoked Have you smoked in the past 12 months: No Aproximately how many cigarettes per day: 0 - Social History Usual Living Arrangement: Alone ADL: Family Assistance History of Recent Travel: No Home Medications - Allergies Allergies/Adverse Reactions: Allergies Allergy/AdvReac Type Severity Reaction Status Date / Time Penicillins Allergy Intermediate rash Verified 11/26/16 15:40 Sulfa (Sulfonamide Allergy Intermediate rash Verified 11/26/16 15:40 Antibiotics) - Home Medications Home Medications: Ambulatory Orders Beta-Carotene(A) W-C and E/Min 1 tab PO DAILY 11/27/16 Metoprolol Succinate [Toprol Xl] 50 mg PO DAILY 11/27/16 Polyethylene Glycol 3350 [Miralax 255 gm Btl -] 17 grams PO DAILY 11/27/16 Simvastatin [Zocor -] 40 mg PO DAILY 11/27/16 Theragen 1 tablet PO DAILY 11/27/16 Warfarin Na [Coumadin -] 4 mg PO 11/27/16 Warfarin Na [Coumadin -] 5 mg PO 11/27/16 Family Disease History - Family Disease History Family History: Denies Review of Systems - Review of Systems Constitutional: reports: Loss of Appetite, Malaise Eyes: reports: No Symptoms HENT: reports: No Symptoms Neck: reports: No Symptoms Cardiovascular: reports: No Symptoms Respiratory: reports: No Symptoms Gastrointestinal: reports: Dysphagia Musculoskeletal: reports: Muscle Weakness Neurological: reports: No Symptoms Psychiatric: reports: No Symptoms Physical Exam Vital Signs: Vital Signs Temperature 97.5 F L 11/27/16 15:34 Pulse Rate 83 11/27/16 15:34 Respiratory Rate 18 11/27/16 15:34 Blood Pressure 119/71 11/27/16 15:34 O2 Sat by Pulse Oximetry (%) 98 11/27/16 09:00 Constitutional: Yes: Calm Eyes: Yes: Conjunctiva Clear HENT: Yes: Atraumatic Neck: Yes: Supple Cardiovascular: Yes: S1, S2 Respiratory: Yes: CTA Bilaterally Gastrointestinal: Yes: Soft Renal/: Yes: WNL Musculoskeletal: Yes: Muscle Weakness Extremities: Yes: Other (left arm fistula with thrill and bruit) Edema: No Neurological: Yes: Oriented Psychiatric: Yes: Oriented Labs: CBC, BMP 11/27/16 06:00 11/27/16 06:00 Laboratory Tests 11/26/16 11/27/16 11/27/16 15:49 06:00 06:00 WBC 2.6 L D Hgb 11.7 Sodium 136 140 Potassium 3.9 3.7 Chloride 97 L 104 Carbon Dioxide 28 29 Anion Gap 11 7 L BUN 38 H D 41 H Creatinine 4.1 H D 4.5 H Imaging - Results Chest X-ray: Report Reviewed Cat Scan: Report Reviewed Problem List - Problems (1) Atrial fibrillation Code(s): I48.91 - UNSPECIFIED ATRIAL FIBRILLATION Qualifiers: Atrial fibrillation type: chronic Qualified Code(s): I48.2 - Chronic atrial fibrillation (2) CVA (cerebral vascular accident) Code(s): I63.9 - CEREBRAL INFARCTION, UNSPECIFIED Qualifiers: CVA mechanism: unspecified Qualified Code(s): I63.9 - Cerebral infarction, unspecified (3) ESRD (end stage renal disease) on dialysis Code(s): N18.6 - END STAGE RENAL DISEASE Z99.2 - DEPENDENCE ON RENAL DIALYSIS (4) HTN (hypertension) Code(s): I10 - ESSENTIAL (PRIMARY) HYPERTENSION Assessment/Plan Current Medications Generic Name Dose Route Start Last Admin Trade Name Freq PRN Reason Stop Dose Admin Atorvastatin Calcium 20 mg 11/28/16 10:00 Lipitor - PO DAILY YVETTE Heparin Sodium (Porcine) 5,000 unit 11/26/16 22:00 11/27/16 10:35 Heparin - SQ 5,000 unit BID YVETTE Administration Non-Formulary Medication 1 tablet 11/28/16 10:00 Theragen PO DAILY YVETTE Polyethylene Glycol 255 gm 11/28/16 10:00 Miralax (For Bowel Prep) - PO DAILY YVETTE Impression 1. ESRD 2. a-fib 3. failure to thrive 4. dysphagia 5. hyperlipidemia 6. hypotension 7. weight loss 8. CAD Plan - will arrange for HD today - pt is on a TTS schedule - called HD unit for HD prescription - pt on 3 k bath - speech and swallow eval - will follow Dr Alcantar
[2016-11-27] MEDS ORDERED: NAPH,MB-DB/K PH,MBDB POWDER PACKET PO ONE (18:46)
[2016-11-27] MEDS: ATORVASTATIN CA 20 MG TABLET (FP) PO SCH (22:55)
--- NOTE | 2016-11-28 09:50 | PN ---
Progress Note, Physician Chief Complaint: no complaints TELE: AF, controlled rate. Rare VPCs and occasionl V couplets - Current Medication List Current Medications: Active Medications Atorvastatin Calcium (Lipitor -) 20 mg PO HS [facility] Last Admin: 11/27/16 22:55 Dose: 20 mg Heparin Sodium (Porcine) (Heparin -) 5,000 unit SQ BID Y[facility]ETTE Last Admin: 11/27/16 22:55 Dose: 5,000 unit Multivitamins/Minerals/Vitamin C (Tab-A-Vit -) 1 tab PO DAILY [facility] Polyethylene Glycol (Miralax (For Bowel Prep) -) 17 gm PO DAILY [facility] - Objective Vital Signs: Vital Signs Temperature 97.6 F 11/28/16 06:00 Pulse Rate 88 11/28/16 06:00 Respiratory Rate 18 11/28/16 06:00 Blood Pressure 114/68 11/28/16 06:00 O2 Sat by Pulse Oximetry (%) 98 11/27/16 21:00 Constitutional: Yes: Calm Eyes: Yes: Conjunctiva Clear Cardiovascular: Yes: Pulse Irregular Respiratory: Yes: CTA Bilaterally Gastrointestinal: Yes: Soft Edema: No Neurological: Yes: Alert Labs: CBC, BMP 11/27/16 06:00 11/27/16 06:00 INR, PTT INR 1.15 (0.82-1.09) H 11/27/16 06:00 Laboratory Tests 11/26/16 11/27/16 11/27/16 15:49 06:00 06:00 WBC 2.6 L D Hgb 11.7 Plt Count 173 D INR 1.15 H Sodium Potassium BUN Creatinine Troponin I < 0.03 L 11/27/16 06:00 WBC Hgb Plt Count INR Sodium 140 Potassium 3.7 BUN 41 H Creatinine 4.5 H Troponin I - ....Imaging EKG: Image Reviewed Assessment/Plan Assessment/Plan 86 year old man with a history of ESRD on HD, Afib not on AC for over a year ( 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 Peoples for hypotension, dysphagia, weight loss Afib-chronic -HR adequately controlled without AV vishnu blockers -pt states he was taken off AC in the past but not sure why, likely due to falls risk -need to further consider the risk vs benefit of full AC, given advanced age and recent fall would hold off for now Hypotension-unclear etiology -likely intravascular depletion secondary to poor po intake -received IVF hydration -avoid anti-HTN medications -no obvious infection present -echo normal Ef, moderate Aortic stenosis- moderate. No further workup needed Dysphagia -swallow evaluation
[2016-11-28] MEDS: HEPARIN NA (PORCINE) 5,000 UNITS/ML 1ML VIAL SQ SCH ×2 (09:58→21:16)
[2016-11-28] MEDS: MULTIVITAMINS (DAILY MVI) TABLET (FP) PO SCH (09:58)
[2016-11-28] MEDS ORDERED: ATORVASTATIN CA 20 MG TABLET (FP) PO SCH (10:00)
[2016-11-28] MEDS ORDERED: POLYETHYLENE GLYCOL 3350 255 GM BTL PO SCH (10:00)
[2016-11-28] MEDS ORDERED: METOPROLOL SUCCINATE 50 MG TAB.SR.24H (FP) PO SCH (10:00)
--- NOTE | 2016-11-28 10:24 | PN ---
Progress Note (short form) - Note Progress Note: Neurology HISTORY OF PRESENT ILLNESS: This is an 86 year old male with a past medical history of ESRD/hemodialysis TThSa, Afib, CHF, HLD, DM2 who presented from his PCP office with hypotension. Pt and son report that he hasn't been to his PCP in over a year and has not taken his medications in "a long time". Pt reports that he has been having difficulty swallowing for months and that he is unable to talk in the morning and his mouth is often dry. He reported weight loss of 100 pounds. Son report that he noticed a new left sided facial droop. In speaking with the patient, he does not notice a different in his face but he has visible left lower quadrant droop of face, upper quadrant does not appear to be impaired when asked for furrow in brow. 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 He has multiple risk factors including AFib, HLD, DM2 and this may be 2/2 to CVA that was not noticed earlier. Not likely Sullivan's Palsy as it does not effect upper quadrant of face. States no new events overnight and we discussed facial activity. Active Medications Atorvastatin Calcium (Lipitor -) 20 mg PO HS [facility] Last Admin: 11/27/16 22:55 Dose: 20 mg Heparin Sodium (Porcine) (Heparin -) 5,000 unit SQ BID [facility] Last Admin: 11/28/16 09:58 Dose: 5,000 unit Multivitamins/Minerals/Vitamin C (Tab-A-Vit -) 1 tab PO DAILY [facility] Last Admin: 11/28/16 09:58 Dose: 1 tab Polyethylene Glycol (Miralax (For Bowel Prep) -) 17 gm PO DAILY [facility] Vital Signs Temperature 97.6 F 11/28/16 06:00 Pulse Rate 88 11/28/16 06:00 Respiratory Rate 18 11/28/16 06:00 Blood Pressure 114/68 11/28/16 06:00 O2 Sat by Pulse Oximetry (%) 98 11/27/16 21:00 GENERAL: Awake, alert, and fully oriented, in no acute distress. HEAD: Normal with no signs of trauma. EYES: Pupils equal, round and reactive to light, extraocular movements intact, sclera anicteric, conjunctiva clear. No lid lag. EARS, NOSE, THROAT: Ears normal, nares patent, oropharynx clear without exudates. Dry mucous membranes. NECK: Normal range of motion, supple without lymphadenopathy, JVD, or masses. LUNGS: Breath sounds equal, clear to auscultation bilaterally. No wheezes, and no crackles. No accessory muscle use. HEART: Regular rate and rhythm, normal S1 and S2 without rub or gallop. + murmur 2/6 5th ICS, MCL ABDOMEN: Soft, nontender, not distended, normoactive bowel sounds, no guarding, no rebound, no masses. No hepatomegaly or splenomegaly. MUSCULOSKELETAL: Normal range of motion at all joints. No bony deformities or tenderness. No CVA tenderness. UPPER EXTREMITIES: 2+ pulses, warm, well-perfused. No cyanosis. No clubbing. No peripheral edema. LOWER EXTREMITIES: 2+ pulses, warm, well-perfused. No calf tenderness. No peripheral edema. NEUROLOGICAL: L facial droop, difficulty in speech, GARRY, EOMI, sensory intact , strength grossly intact PSYCHIATRIC: Cooperative. Good eye contact. Appropriate mood and affect. SKIN: Warm, dry, normal turgor, no rashes or lesions noted, normal capillary refill. CBCD WBC 2.6 K/mm3 (4.0-10.0) L D 11/27/16 06:00 RBC 3.83 M/mm3 (4.00-5.60) L 11/27/16 06:00 Hgb 11.7 GM/dL (11.7-16.9) 11/27/16 06:00 Hct 34.7 % (35.4-49) L 11/27/16 06:00 MCV 90.6 fl (80-96) 11/27/16 06:00 MCHC 33.7 g/dl (32.0-35.9) 11/27/16 06:00 RDW 14.6 % (11.9-15.9) 11/27/16 06:00 Plt Count 173 K/MM3 (134-434) D 11/27/16 06:00 MPV 9.0 fl (7.5-11.1) 11/27/16 06:00 CMP Sodium 140 mmol/L (136-145) 11/27/16 06:00 Potassium 3.7 mmol/L (3.5-5.1) 11/27/16 06:00 Chloride 104 mmol/L (98-107) 11/27/16 06:00 Carbon Dioxide 29 mmol/L (21-32) 11/27/16 06:00 Anion Gap 7 (8-16) L 11/27/16 06:00 BUN 41 mg/dL (7-18) H 11/27/16 06:00 Creatinine 4.5 mg/dL (0.7-1.3) H 11/27/16 06:00 Creat Clearance w eGFR 12.46 (>60) 11/27/16 06:00 Calcium 8.4 mg/dL (8.5-10.1) L 11/27/16 06:00 Total Bilirubin 0.7 mg/dL (0.2-1.0) D 11/27/16 06:00 AST 9 U/L (15-37) L D 11/27/16 06:00 ALT 12 U/L (12-78) D 11/27/16 06:00 Alkaline Phosphatase 120 U/L (45-117) H D 11/27/16 06:00 Total Protein 5.7 g/dl (6.4-8.2) L 11/27/16 06:00 Albumin 2.5 g/dl (3.4-5.0) L D 11/27/16 06:[address] head without contrast Infarcts right basal ganglia that appear to be chronic and white matter changes most 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 If there is a clinical suspicion of acute cerebral ischemia, MRI of the brain or short-term followup CT imaging may be helpful for further evaluation. ASSESSMENT/PLAN: 86 year old male with a past medical history of ESRD/hemodialysis TThSa, Afib, CHF, HLD, DM2 who presented from his PCP office with hypotension. Pt and son report that he hasn't been to his PCP in over a year and has not taken his medications in "a long time". Pt reports that he has been having difficulty swallowing for months and that he is unable to talk in the morning and his mouth is often dry. He reported weight loss of 100 pounds. Son report that he noticed a new left sided facial droop. In speaking with the patient, he does not notice a different in his face but he has visible left lower quadrant droop of face, upper quadrant does not appear to be impaired when asked for furrow in brow. 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 He has multiple risk factors including AFib, HLD, DM2 and this may be 2/2 to CVA that was not noticed earlier. Not likely Sullivan's Palsy as it does not effect upper quadrant of face. Recommend risk factor minimization, maintain normal glycemic index. BP range 120 -140 systolic, optimize LDL (goal <70). Would recommend speech/swallow therapy. Facial exercises may be of some benefit. MRI not likely to be clinically helpful as CVA noted on CT head and is chronic, not acute, on imaging. Continue HD but monitor BP closely and avoidance of hypotensive episodes. Pt with Afib but not on AC (says it was stopped for dialysis) and would re-evaluate need for AC. Currently rate controled. No further rec'd at this time.
[2016-11-28 10:31] LABS: MCH 29.6 pg (25.7-33.7); MCHC 32.8 g/dl (32.0-35.9); MEAN CELL VOLUME 90.3 fl (80-96); MEAN PLT VOLUME 8.1 fl (7.5-11.1); NEUTROPHILS 69.1 % (42.8-82.8); PLATELET COUNT 175 K/MM3 (134-434); RDW 14.4 % (11.9-15.9); WHITE BLOOD COUNT 3.5 K/mm3 (4.0-10.0)
--- NOTE | 2016-11-28 10:41 | PN ---
Progress Note, RESEARCH PHYSIOLOGIST - Note Progress Note: Selected Entries 11/27/16 11/27/16 11/27/16 01:58 05:53 09:00 Breakfast Lunch Supper Temperature 97.5 F L 98.1 F 97.5 F L 11/27/16 11/27/16 11/27/16 15:34 18:30 19:00 Breakfast 50% Lunch 50% Supper 25% Temperature 97.5 F L 97.6 F 97.6 F 11/27/16 11/28/16 11/28/16 22:00 02:00 06:00 Breakfast Lunch Supper Temperature 98.0 F 98.4 F 97.6 F 11/28/16 08:45 Breakfast 100% Lunch Supper Temperature Pt reports tolerating modified diet more easily with less coughing. For MBS today.
[2016-11-28] MEDS: POLYETHYLENE GLYCOL 3350 255 GM BTL PO SCH (10:46)
--- NOTE | 2016-11-28 11:06 | PN ---
Progress Note (short form) - Note Progress Note: Subjective: The patient was seen and examined at the bedside, he reports feeling good today. Left facial droop on exam. Patient reports "I have had that for some time, but I am a bad historian". Neuro consult appreciated Awaiting call back from Dr. Peoples to see if patient had droop on recent exam Current Medications Generic Name Dose Route Start Last Admin Trade Name Frejonathan PRN Reason Stop Dose Admin Heparin Sodium (Porcine) 5,000 unit 11/26/16 22:00 11/27/16 10:35 Heparin - SQ 5,000 unit BID [facility]ETTE Administration Objective: Vital Signs Period Temp Pulse Resp BP Sys/Luo Pulse Ox Last 24 Hr 97.3 F-98.1 F 74-100 18-18 87-106/55-78 93-100 Physical Exam: General: Thin, NAD Lungs: CTA bilaterally Heart: Irregular rhythm, S1S2 Abd: Soft, non-tender, non-distended. Normoactive bowel sounds Ext: Thin, warm. 2+ DP/PT bilaterally Neuro: Left mouth droop. Difficulty in speech. Forehead not affected. 4/5 muscle strength equal/bilateral CBCD WBC 2.6 K/mm3 (4.0-10.0) L D 11/27/16 06:00 RBC 3.83 M/mm3 (4.00-5.60) L 11/27/16 06:00 Hgb 11.7 GM/dL (11.7-16.9) 11/27/16 06:00 Hct 34.7 % (35.4-49) L 11/27/16 06:00 MCV 90.6 fl (80-96) 11/27/16 06:00 MCHC 33.7 g/dl (32.0-35.9) 11/27/16 06:00 RDW 14.6 % (11.9-15.9) 11/27/16 06:00 Plt Count 173 K/MM3 (134-434) D 11/27/16 06:00 MPV 9.0 fl (7.5-11.1) 11/27/16 06:00 CMP Sodium 140 mmol/L (136-145) 11/27/16 06:00 Potassium 3.7 mmol/L (3.5-5.1) 11/27/16 06:00 Chloride 104 mmol/L (98-107) 11/27/16 06:00 Carbon Dioxide 29 mmol/L (21-32) 11/27/16 06:00 Anion Gap 7 (8-16) L 11/27/16 06:00 BUN 41 mg/dL (7-18) H 11/27/16 06:00 Creatinine 4.5 mg/dL (0.7-1.3) H 11/27/16 06:00 Creat Clearance w eGFR 12.46 (>60) 11/27/16 06:00 Random Glucose 61 mg/dL (74-106) L D 11/27/16 06:00 Calcium 8.4 mg/dL (8.5-10.1) L 11/27/16 06:00 Total Bilirubin 0.7 mg/dL (0.2-1.0) D 11/27/16 06:00 AST 9 U/L (15-37) L D 11/27/16 06:00 ALT 12 U/L (12-78) D 11/27/16 06:00 Alkaline Phosphatase 120 U/L (45-117) H D 11/27/16 06:00 Total Protein 5.7 g/dl (6.4-8.2) L 11/27/16 06:00 Albumin 2.5 g/dl (3.4-5.0) L D 11/27/16 06:00 CARDIAC ENZYMES Creatine Kinase 100 IU/L (39-308) 11/26/16 15:49 Troponin I < 0.03 ng/ml (0.03-0.50) L 11/26/16 15:49 Assessment: This is an 86 year old male with PMHx of ESRD on HD (,,), A.fib (not on AC), CHF, hyperlipidemia, who presented to the ED from his primary care provider's office for hypotension. Plan: 1) Neuro: Left facial droop, new vs. 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 - Patient has a.fib but not on anticoagulation - Patient reports dysphagia, f/u modified barium swallow today - Awaiting call back from Dr. Peoples re: new facial droop - Appreciate swallow evaluation - Appreciate neuro consult 2) Cardiology: Chronic a.fib - Unknown why patient was taken off anticoagulation - Defer starting AC to cardiology Hypotension - Unknown etiology - Hold Toprol XL - No clear source of infection - ECHO reviewed, per cards, no further workup - Appreciate cardiology consult 3) : ESRD - Continue HD as scheduled - Appreciate nephrology consult 4) Endocrine: DM? - HgbA1c 5.5 5) F/E/N: - Dysphagia pureed diet - Monitor electrolytes 6) Prophylaxis: - Heparin 5,000u sq bid - PT request 7) Dispo: - Requires continued inpatient care - Will need SNF, discussed with case managementErica CODE STATUS: FULL CODE Visit type - Emergency Visit Emergency Visit: Yes ED Registration Date: 11/26/16 Care time: The patient presented to the Emergency Department on the above date and was hospitalized for further evaluation of their emergent condition. - New Patient This patient is new to me today: No - Critical Care Critical Care patient: No
[2016-11-28 11:28] LABS: ALBUMIN 2.7 g/dl (3.4-5.0); ANION GAP 8 (8-16); CALCIUM 8.4 mg/dL (8.5-10.1); CO2 35 mmol/L (21-32); GLUCOSE,RANDOM 124 mg/dL (74-106); MAGNESIUM 2.2 mg/dL (1.8-2.4); PHOSPHOROUS 1.9 mg/dL (2.5-4.9); SGOT/AST 13 U/L (15-37); SGPT/ALT 15 U/L (12-78)
[2016-11-28 11:30] LABS: ALK PHOS 132 U/L (45-117); BILIRUBIN,TOTAL 0.5 mg/dL (0.2-1.0); CREATININE 3.2 mg/dL (0.7-1.3)
--- NOTE | 2016-11-28 15:20 | PN ---
Progress Note, Physician History of Present Illness: Pt seen and examined at bedside. He is more awake and alert than yesterday. - Current Medication List Current Medications: Active Medications Atorvastatin Calcium (Lipitor -) 20 mg PO HS [facility] Last Admin: 11/27/16 22:55 Dose: 20 mg Heparin Sodium (Porcine) (Heparin -) 5,000 unit SQ BID [facility] Last Admin: 11/28/16 09:58 Dose: 5,000 unit Multivitamins/Minerals/Vitamin C (Tab-A-Vit -) 1 tab PO DAILY [facility] Last Admin: 11/28/16 09:58 Dose: 1 tab Polyethylene Glycol (Miralax (For Bowel Prep) -) 17 gm PO DAILY [facility] Last Admin: 11/28/16 10:46 Dose: 17 gm - Objective Vital Signs: Vital Signs Temperature 98.3 F 11/28/16 14:00 Pulse Rate 97 H 11/28/16 14:00 Respiratory Rate 18 11/28/16 14:00 Blood Pressure 90/48 11/28/16 14:00 O2 Sat by Pulse Oximetry (%) 98 11/27/16 21:00 Constitutional: Yes: Calm Eyes: Yes: Conjunctiva Clear HENT: Yes: Atraumatic Neck: Yes: Supple Cardiovascular: Yes: S1, S2 Respiratory: Yes: CTA Bilaterally Gastrointestinal: Yes: Soft Genitourinary: Yes: WNL Musculoskeletal: Yes: Muscle Weakness Edema: No Neurological: Yes: Oriented Psychiatric: Yes: Oriented Labs: CBC, BMP 11/28/16 09:30 11/28/16 09:30 INR, PTT INR 1.15 (0.82-1.09) H 11/27/16 06:00 Problem List - Problems (1) Atrial fibrillation Code(s): I48.91 - UNSPECIFIED ATRIAL FIBRILLATION Qualifiers: Atrial fibrillation type: chronic Qualified Code(s): I48.2 - Chronic atrial fibrillation (2) CVA (cerebral vascular accident) Code(s): I63.9 - CEREBRAL INFARCTION, UNSPECIFIED Qualifiers: CVA mechanism: unspecified Qualified Code(s): I63.9 - Cerebral infarction, unspecified (3) ESRD (end stage renal disease) on dialysis Code(s): N18.6 - END STAGE RENAL DISEASE Z99.2 - DEPENDENCE ON RENAL DIALYSIS (4) HTN (hypertension) Code(s): I10 - ESSENTIAL (PRIMARY) HYPERTENSION Assessment/Plan Current Medications Generic Name Dose Route Start Last Admin Trade Name Ora PRN Reason Stop Dose Admin Atorvastatin Calcium 20 mg 11/27/16 22:00 11/27/16 22:55 Lipitor - PO 20 mg HS [facility]TE Administration Heparin Sodium (Porcine) 5,000 unit 11/26/16 22:00 11/28/16 09:58 Heparin - SQ 5,000 unit BID Y[facility]ETTE Administration Multivitamins/Minerals/Vitamin C 1 tab 11/28/16 10:00 11/28/16 09:58 Tab-A-Vit - PO 1 tab DAILY [facility]TE Administration Polyethylene Glycol 17 gm 11/28/16 10:00 11/28/16 10:46 Miralax (For Bowel Prep) - PO 17 gm DAILY [facility]TE Administration Impression 1. ESRD 2. a-fib 3. failure to thrive 4. dysphagia 5. hyperlipidemia 6. hypotension 7. weight loss 8. CAD Plan - will arrange for HD in am - neuro input noted - will use 3 k bath - speech and swallow eval - pt/rehab once stable - will follow Dr Alcantar
[2016-11-28] MEDS: ATORVASTATIN CA 20 MG TABLET (FP) PO SCH (21:16)
[2016-11-29] MEDS ORDERED: HEPARIN NA (PORCINE) 5,000 UNITS/ML 1ML VIAL IVPUSH ONE (08:00)
[2016-11-29 08:22] LABS: MCH 30.3 pg (25.7-33.7); MCHC 33.7 g/dl (32.0-35.9); MEAN PLT VOLUME 8.7 fl (7.5-11.1); PLATELET COUNT 203 K/MM3 (134-434); RDW 14.4 % (11.9-15.9); WHITE BLOOD COUNT 3.2 K/mm3 (4.0-10.0)
--- NOTE | 2016-11-29 08:33 | PN ---
Progress Note (short form) - Note Progress Note: Subjective: The patient was seen and examined at the bedside, he reports feeling good today. He is currently getting dialysis Current Medications Generic Name Dose Route Start Last Admin Trade Name Ora PRN Reason Stop Dose Admin Atorvastatin Calcium 20 mg 11/27/16 22:00 11/28/16 21:16 Lipitor - PO 20 mg HS [facility]TE Administration Heparin Sodium (Porcine) 5,000 unit 11/26/16 22:00 11/28/16 21:16 Heparin - SQ 5,000 unit BID Y[facility]ETTE Administration Multivitamins/Minerals/Vitamin C 1 tab 11/28/16 10:00 11/28/16 09:58 Tab-A-Vit - PO 1 tab DAILY [facility]TE Administration Polyethylene Glycol 17 gm 11/28/16 10:00 11/28/16 10:46 Miralax (For Bowel Prep) - PO 17 gm DAILY [facility] Administration Objective: Vital Signs Period Temp Pulse Resp BP Sys/Luo Pulse Ox Last 24 Hr 96.8 F-98.8 F 80-97 16-18 89-112/48-68 98-98 Physical Exam: General: Thin, NAD Lungs: CTA bilaterally Heart: Irregular rhythm, S1S2 Abd: Soft, non-tender, non-distended. Normoactive bowel sounds Ext: Thin, warm. 2+ DP/PT bilaterally Neuro: Left mouth droop. Difficulty in speech. Forehead not affected. 4/5 muscle strength equal/bilateral CBCD WBC 3.5 K/mm3 (4.0-10.0) L D 11/28/16 09:30 RBC 4.21 M/mm3 (4.00-5.60) 11/28/16 09:30 Hgb 12.4 GM/dL (11.7-16.9) 11/28/16 09:30 Hct 38.0 % (35.4-49) 11/28/16 09:30 MCV 90.3 fl (80-96) 11/28/16 09:30 MCHC 32.8 g/dl (32.0-35.9) 11/28/16 09:30 RDW 14.4 % (11.9-15.9) 11/28/16 09:30 Plt Count 175 K/MM3 (134-434) 11/28/16 09:30 MPV 8.1 fl (7.5-11.1) 11/28/16 09:30 CMP Sodium 141 mmol/L (136-145) 11/28/16 09:30 Potassium 3.8 mmol/L (3.5-5.1) 11/28/16 09:30 Chloride 98 mmol/L (98-107) 11/28/16 09:30 Carbon Dioxide 35 mmol/L (21-32) H D 11/28/16 09:30 Anion Gap 8 (8-16) 11/28/16 09:30 BUN 24 mg/dL (7-18) H D 11/28/16 09:30 Creatinine 3.2 mg/dL (0.7-1.3) H D 11/28/16 09:30 Creat Clearance w eGFR 18.47 (>60) 11/28/16 09:30 Random Glucose 124 mg/dL (74-106) H D 11/28/16 09:30 Calcium 8.4 mg/dL (8.5-10.1) L 11/28/16 09:30 Total Bilirubin 0.5 mg/dL (0.2-1.0) D 11/28/16 09:30 AST 13 U/L (15-37) L D 11/28/16 09:30 ALT 15 U/L (12-78) D 11/28/16 09:30 Alkaline Phosphatase 132 U/L (45-117) H 11/28/16 09:30 Total Protein 6.0 g/dl (6.4-8.2) L 11/28/16 09:30 Albumin 2.7 g/dl (3.4-5.0) L 11/28/16 09:30 CARDIAC ENZYMES Creatine Kinase 100 IU/L (39-308) 11/26/16 15:49 Troponin I < 0.03 ng/ml (0.03-0.50) L 11/26/16 15:49 Assessment: This is an 86 year old male with PMHx of ESRD on HD (,,), A.fib (not on AC), CHF, hyperlipidemia, who presented to the ED from his primary care provider's office for hypotension. Plan: 1) Neuro: Left facial droop, new vs. 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 - Patient has a.fib but not on anticoagulation - MBS rec: dysphagia pureed with nectar thick liquids - Appreciate swallow evaluation - Appreciate neuro consult 2) Cardiology: Chronic a.fib - Unknown why patient was taken off anticoagulation - Defer starting AC to cardiology Hypotension - Unknown etiology - Hold Toprol XL - No clear source of infection - ECHO reviewed, per cards, no further workup - Appreciate cardiology consult 3) : ESRD - Continue HD as scheduled (, , ) - Appreciate nephrology consult 4) Endocrine: - HgbA1c 5.5 5) F/E/N: - Dysphagia pureed diet with nectar thick liquids - Monitor electrolytes 6) Prophylaxis: - Heparin 5,000u sq bid - PT: walked 25 ft 7) Dispo: - Requires continued inpatient care - Will need SNF, awaiting placement CODE STATUS: FULL CODE Visit type - Emergency Visit Emergency Visit: Yes ED Registration Date: 11/26/16 Care time: The patient presented to the Emergency Department on the above date and was hospitalized for further evaluation of their emergent condition. - New Patient This patient is new to me today: No - Critical Care Critical Care patient: No
[2016-11-29 08:40] LABS: ALBUMIN 2.7 g/dl (3.4-5.0); ANION GAP 8 (8-16); BILIRUBIN,TOTAL 0.5 mg/dL (0.2-1.0); CALCIUM 8.4 mg/dL (8.5-10.1); CO2 31 mmol/L (21-32); CREATININE 4.1 mg/dL (0.7-1.3); GLUCOSE,RANDOM 97 mg/dL (74-106); SGOT/AST 10 U/L (15-37); SGPT/ALT 15 U/L (12-78); TOT PROT 6.2 g/dl (6.4-8.2)
[2016-11-29 08:41] LABS: ALK PHOS 140 U/L (45-117)
[2016-11-29] MEDS: MULTIVITAMINS (DAILY MVI) TABLET (FP) PO SCH (10:50)
[2016-11-29] MEDS: HEPARIN NA (PORCINE) 5,000 UNITS/ML 1ML VIAL SQ SCH ×2 (10:50→23:35)
[2016-11-29] MEDS: POLYETHYLENE GLYCOL 3350 255 GM BTL PO SCH ×2 (10:51→13:37)
--- NOTE | 2016-11-29 13:02 | PN ---
Progress Note (short form) - Note Progress Note: RENAL Pt seen towards end of HD Says HD was OK Says he has lost a lot of weight because he does not feel like eating CBC, BMP 11/29/16 07:10 11/29/16 07:10 Current Medications Generic Name Dose Route Start Last Admin Trade Name Ora PRN Reason Stop Dose Admin Atorvastatin Calcium 20 mg 11/27/16 22:00 11/28/16 21:16 Lipitor - PO 20 mg HS YVETTE Administration Heparin Sodium (Porcine) 5,000 unit 11/26/16 22:00 11/29/16 10:50 Heparin - SQ 5,000 unit BID YVETTE Administration Multivitamins/Minerals/Vitamin C 1 tab 11/28/16 10:00 11/29/16 10:50 Tab-A-Vit - PO 1 tab DAILY YVETTE Administration Polyethylene Glycol 17 gm 11/28/16 10:00 11/29/16 10:51 Miralax (For Bowel Prep) - PO Not Given DAILY YVETTE Last Vital Signs Temp Pulse Resp BP Pulse Ox 98.2 F 78 18 104/66 98 11/29/16 10:00 11/29/16 10:40 11/29/16 10:40 11/29/16 10:40 11/29/16 10:00 emaciated LUngs clear cvs s1s2 rr abd soft, palpable abdominal aorta, loose skin ext no edema neuro a+ox3 Impression 1. ESRD 2. a-fib 3. failure to thrive 4. dysphagia 5. hyperlipidemia 6. hypotension 7. weight loss 8. CAD Plan -tolerated HD well - pt/rehab once stable
--- NOTE | 2016-11-29 13:39 | PN ---
Progress Note, Physician Chief Complaint: Pt denies chest pain or dyspnea. History of Present Illness: Mr Mancilla, an 86 yr old white man, was brought in to his PCP by his son. PCP, Dr. Peoples, noted the patient was hypotensive and sent him to the ED. Patient himself has no complaints other than difficulty swallowing and resulted dec oral intake. Difficulty swallowing has been present for a number of months, but the patient has refused further workup. ROS: difficulty swallowing, decreased oral intake of floods and fluids. Otherwise no fever or chills or other signs of infection. No chest or abd pain, no SOB. remainder of system reviewed negative PMHx: Chronic renal failure, on dialysis, dysphagia as noted above without characterization, dementia SHx: Patient lives by himself, takes care of himself, refuses to have assistance other than his family, has a son and grandson who visits regularly, responsible for his own meals, no known use of tobacco, alcohol or drugs. FHx: reviewed with son, is noncontributory to this illness. 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 - Current Medication List Current Medications: Active Medications Atorvastatin Calcium (Lipitor -) 20 mg PO HS [facility] Last Admin: 11/28/16 21:16 Dose: 20 mg Heparin Sodium (Porcine) (Heparin -) 5,000 unit SQ BID [facility] Last Admin: 11/29/16 10:50 Dose: 5,000 unit Multivitamins/Minerals/Vitamin C (Tab-A-Vit -) 1 tab PO DAILY [facility] Last Admin: 11/29/16 10:50 Dose: 1 tab Polyethylene Glycol (Miralax (For Bowel Prep) -) 17 gm PO DAILY [facility] Last Admin: 11/29/16 13:37 Dose: 17 gm - Objective Vital Signs: Vital Signs Temperature 98.2 F 11/29/16 10:00 Pulse Rate 78 11/29/16 10:40 Respiratory Rate 18 11/29/16 10:40 Blood Pressure 104/66 11/29/16 10:40 O2 Sat by Pulse Oximetry (%) 98 11/29/16 10:00 Constitutional: Yes: Calm Eyes: Yes: WNL HENT: Yes: WNL Neck: Yes: WNL Cardiovascular: Yes: Pulse Irregular, S1 (varies in intensity) Respiratory: Yes: Regular Gastrointestinal: Yes: Soft ...Rectal Exam: Yes: Deferred Genitourinary: No: Anuria Extremities: Yes: Cool Edema: No Peripheral Pulses WNL: No Peripheral Pulses: Left Doralis Pedis: 1+, Right Dorsalis Pedis: 1+ Neurological: Yes: Alert, Oriented, Weakness Psychiatric: Yes: WNL Labs: CBC, BMP 11/29/16 07:10 11/29/16 07:10 INR, PTT INR 1.15 (0.82-1.09) H 11/27/16 06:00 Problem List - Problems (1) Atrial fibrillation Assessment/Plan: Problematic using diltiazem or metoprolol due to initial hypotension. As noted, it is unclear why pt is not on an anticoagulant; ?hx falls (lives independently). Code(s): I48.91 - UNSPECIFIED ATRIAL FIBRILLATION Qualifiers: Atrial fibrillation type: chronic Qualified Code(s): I48.2 - Chronic atrial fibrillation (2) Dehydration Code(s): E86.0 - DEHYDRATION (3) ESRD (end stage renal disease) on dialysis Code(s): N18.6 - END STAGE RENAL DISEASE Z99.2 - DEPENDENCE ON RENAL DIALYSIS (4) HTN (hypertension) Code(s): I10 - ESSENTIAL (PRIMARY) HYPERTENSION (5) Aortic stenosis Assessment/Plan: ECHO: normal LVEF; moderate . Code(s): I35.0 - NONRHEUMATIC AORTIC (VALVE) STENOSIS
[2016-11-29] MEDS: ATORVASTATIN CA 20 MG TABLET (FP) PO SCH (23:36)
[2016-11-30 06:36] LABS: HEP B SURFACE AB Reactive (.)
[2016-11-30] MEDS: POLYETHYLENE GLYCOL 3350 255 GM BTL PO SCH (09:54)
[2016-11-30] MEDS: MULTIVITAMINS (DAILY MVI) TABLET (FP) PO SCH (09:54)
[2016-11-30] MEDS: HEPARIN NA (PORCINE) 5,000 UNITS/ML 1ML VIAL SQ SCH ×2 (09:54→22:52)
--- NOTE | 2016-11-30 12:26 | PN ---
Progress Note (short form) - Note Progress Note: RENAL Pt seen towards end of HD Says HD was OK Says he has lost a lot of weight because he does not feel like eating Last Vital Signs Temp Pulse Resp BP Pulse Ox 98.2 F 85 18 104/59 97 11/30/16 06:00 11/30/16 06:00 11/30/16 08:53 11/30/16 06:00 11/30/16 08:53 emaciated LUngs clear cvs s1s2 rr abd soft, palpable abdominal aorta, loose skin ext no edema neuro a+ox3 Impression 1. ESRD 2. a-fib 3. failure to thrive 4. dysphagia 5. hyperlipidemia 6. hypotension 7. weight loss 8. CAD Plan -tolerated HD well - pt/rehab once stable
--- NOTE | 2016-11-30 17:01 | PN ---
Progress Note (short form) - Note Progress Note: Subjective: The patient was seen and examined at the bedside, he states he had a large bowel movement today and was unable to make it to the toilet Current Medications Generic Name Dose Route Start Last Admin Trade Name Ora PRN Reason Stop Dose Admin Atorvastatin Calcium 20 mg 11/27/16 22:00 11/29/16 23:36 Lipitor - PO 20 mg HS YVETTE Administration Heparin Sodium (Porcine) 5,000 unit 11/26/16 22:00 11/30/16 09:54 Heparin - SQ 5,000 unit BID YVETTE Administration Multivitamins/Minerals/Vitamin C 1 tab 11/28/16 10:00 11/30/16 09:54 Tab-A-Vit - PO 1 tab DAILY YVETTE Administration Polyethylene Glycol 17 gm 11/28/16 10:00 11/30/16 09:54 Miralax (For Bowel Prep) - PO 17 gm DAILY YVETTE Administration Objective: Vital Signs Period Temp Pulse Resp BP Sys/Luo Pulse Ox Last 24 Hr 97.5 F-98.7 F 84-91 18-20 96-113/45-68 97-97 Physical Exam: General: Thin, NAD Lungs: CTA bilaterally Heart: Irregular rhythm, S1S2 Abd: Soft, non-tender, non-distended. Normoactive bowel sounds Ext: Thin, warm. 2+ DP/PT bilaterally Neuro: Left mouth droop. Difficulty in speech. Forehead not affected. 4/5 muscle strength equal/bilateral CBCD WBC 3.2 K/mm3 (4.0-10.0) L 11/29/16 07:10 RBC 4.21 M/mm3 (4.00-5.60) 11/29/16 07:10 Hgb 12.8 GM/dL (11.7-16.9) 11/29/16 07:10 Hct 37.9 % (35.4-49) 11/29/16 07:10 MCV 90.0 fl (80-96) 11/29/16 07:10 MCHC 33.7 g/dl (32.0-35.9) 11/29/16 07:10 RDW 14.4 % (11.9-15.9) 11/29/16 07:10 Plt Count 203 K/MM3 (134-434) 11/29/16 07:10 MPV 8.7 fl (7.5-11.1) 11/29/16 07:10 CMP Sodium 138 mmol/L (136-145) 11/29/16 07:10 Potassium 4.1 mmol/L (3.5-5.1) 11/29/16 07:10 Chloride 99 mmol/L (98-107) 11/29/16 07:10 Carbon Dioxide 31 mmol/L (21-32) 11/29/16 07:10 Anion Gap 8 (8-16) 11/29/16 07:10 BUN 33 mg/dL (7-18) H D 11/29/16 07:10 Creatinine 4.1 mg/dL (0.7-1.3) H D 11/29/16 07:10 Creat Clearance w eGFR 13.87 (>60) 11/29/16 07:10 Random Glucose 97 mg/dL (74-106) D 11/29/16 07:10 Calcium 8.4 mg/dL (8.5-10.1) L 11/29/16 07:10 Total Bilirubin 0.5 mg/dL (0.2-1.0) 11/29/16 07:10 AST 10 U/L (15-37) L D 11/29/16 07:10 ALT 15 U/L (12-78) 11/29/16 07:10 Alkaline Phosphatase 140 U/L (45-117) H 11/29/16 07:10 Total Protein 6.2 g/dl (6.4-8.2) L 11/29/16 07:10 Albumin 2.7 g/dl (3.4-5.0) L 11/29/16 07:10 CARDIAC ENZYMES Creatine Kinase 100 IU/L (39-308) 11/26/16 15:49 Troponin I < 0.03 ng/ml (0.03-0.50) L 11/26/16 15:49 Assessment: This is an 86 year old male with PMHx of ESRD on HD (,,), A.fib (not on AC), CHF, hyperlipidemia, who presented to the ED from his primary care provider's office for hypotension. Plan: 1) Neuro: Left facial droop, new vs. 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 - Patient has a.fib but not on anticoagulation - MBS rec: dysphagia pureed with nectar thick liquids - Appreciate swallow evaluation - Appreciate neuro consult 2) Cardiology: Chronic a.fib - Unknown why patient was taken off anticoagulation - Defer starting AC to cardiology Hypotension - Unknown etiology - Hold Toprol XL - No clear source of infection - ECHO reviewed, per cards, no further workup - Appreciate cardiology consult 3) : ESRD - Continue HD as scheduled (, , ) - Appreciate nephrology consult 4) Endocrine: - HgbA1c 5.5 5) F/E/N: - Dysphagia pureed diet with nectar thick liquids - Monitor electrolytes 6) Prophylaxis: - Heparin 5,000u sq bid - PT: walked 25 ft 7) Dispo: - Requires continued inpatient care - Will need SNF, awaiting placement CODE STATUS: FULL CODE Visit type - Emergency Visit Emergency Visit: Yes ED Registration Date: 11/26/16 Care time: The patient presented to the Emergency Department on the above date and was hospitalized for further evaluation of their emergent condition. - New Patient This patient is new to me today: No - Critical Care Critical Care patient: No
[2016-11-30] MEDS: ATORVASTATIN CA 20 MG TABLET (FP) PO SCH (22:51)
--- NOTE | 2016-12-01 00:13 | PN ---
Progress Note, Physician Chief Complaint: Pt's son is at bedside. Pt has no complaints. History of Present Illness: Mr Mancilla, an 86 yr old white man, was brought in to his PCP by his son. PCP, Dr. Peoples, noted the patient was hypotensive and sent him to the ED. Patient himself has no complaints other than difficulty swallowing and resulted dec oral intake. Difficulty swallowing has been present for a number of months, but the patient has refused further workup. ROS: difficulty swallowing, decreased oral intake of floods and fluids. Otherwise no fever or chills or other signs of infection. No chest or abd pain, no SOB. remainder of system reviewed negative PMHx: Chronic renal failure, on dialysis, dysphagia as noted above without characterization, dementia SHx: Patient lives by himself, takes care of himself, refuses to have assistance other than his family, has a son and grandson who visits regularly, responsible for his own meals, no known use of tobacco, alcohol or drugs. FHx: reviewed with son, is noncontributory to this illness. 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 - Current Medication List Current Medications: Active Medications Atorvastatin Calcium (Lipitor -) 20 mg PO HS [facility] Last Admin: 11/30/16 22:51 Dose: 20 mg Heparin Sodium (Porcine) (Heparin -) 5,000 unit SQ BID [facility] Last Admin: 11/30/16 22:52 Dose: 5,000 unit Multivitamins/Minerals/Vitamin C (Tab-A-Vit -) 1 tab PO DAILY [facility] Last Admin: 11/30/16 09:54 Dose: 1 tab Polyethylene Glycol (Miralax (For Bowel Prep) -) 17 gm PO DAILY [facility] Last Admin: 11/30/16 09:54 Dose: 17 gm - Objective Vital Signs: Vital Signs Temperature 97.6 F 11/30/16 18:00 Pulse Rate 92 H 11/30/16 18:00 Respiratory Rate 18 11/30/16 21:00 Blood Pressure 106/65 11/30/16 18:00 O2 Sat by Pulse Oximetry (%) 97 11/30/16 21:00 Constitutional: Yes: Calm Eyes: Yes: WNL HENT: Yes: WNL Neck: Yes: WNL Cardiovascular: Yes: Pulse Irregular Respiratory: Yes: Regular Gastrointestinal: Yes: Soft ...Rectal Exam: Yes: Deferred Genitourinary: No: Anuria Musculoskeletal: Yes: Muscle Weakness Extremities: Yes: Cool Edema: No Integumentary: Yes: WNL Labs: CBC, BMP 11/29/16 07:10 11/29/16 07:10 INR, PTT INR 1.15 (0.82-1.09) H 11/27/16 06:00 Problem List - Problems (1) Atrial fibrillation Assessment/Plan: Problematic using diltiazem or metoprolol due to initial hypotension; HR well- controlled presently. As noted, it is unclear why pt is not on an anticoagulant; ?hx falls (lives independently). Code(s): I48.91 - UNSPECIFIED ATRIAL FIBRILLATION Qualifiers: Atrial fibrillation type: chronic Qualified Code(s): I48.2 - Chronic atrial fibrillation (2) Dehydration Code(s): E86.0 - DEHYDRATION (3) ESRD (end stage renal disease) on dialysis Assessment/Plan: f/u with special education assistant. Code(s): N18.6 - END STAGE RENAL DISEASE Z99.2 - DEPENDENCE ON RENAL DIALYSIS (4) HTN (hypertension) Assessment/Plan: periods of hypotension. Code(s): I10 - ESSENTIAL (PRIMARY) HYPERTENSION (5) Aortic stenosis Assessment/Plan: ECHO: normal LVEF; moderate . Code(s): I35.0 - NONRHEUMATIC AORTIC (VALVE) STENOSIS
[2016-12-01 07:34] LABS: BASOPHIL 0.8 % (0-2.0); EOSINOPHIL 1.8 % (0-4.5); MCH 30.5 pg (25.7-33.7); MCHC 33.4 g/dl (32.0-35.9); MEAN CELL VOLUME 91.2 fl (80-96); MEAN PLT VOLUME 8.4 fl (7.5-11.1); NEUTROPHILS 67.4 % (42.8-82.8); PLATELET COUNT 176 K/MM3 (134-434); RDW 14.2 % (11.9-15.9); WHITE BLOOD COUNT 4.3 K/mm3 (4.0-10.0)
[2016-12-01 08:20] LABS: ANION GAP 6 (8-16); CALCIUM 8.4 mg/dL (8.5-10.1); CO2 35 mmol/L (21-32); GLUCOSE,RANDOM 71 mg/dL (74-106)
[2016-12-01 08:24] LABS: ALBUMIN 2.6 g/dl (3.4-5.0); ALK PHOS 126 U/L (45-117); BILIRUBIN,TOTAL 0.4 mg/dL (0.2-1.0); CREATININE 3.9 mg/dL (0.7-1.3); SGOT/AST 18 U/L (15-37); SGPT/ALT 21 U/L (12-78); TOT PROT 5.6 g/dl (6.4-8.2)
--- NOTE | 2016-12-01 09:38 | PN ---
Progress Note (short form) - Note Progress Note: Neurology HISTORY OF PRESENT ILLNESS: This is an 86 year old male with a past medical history of ESRD/hemodialysis TThSa, Afib, CHF, HLD, DM2 who presented from his PCP office with hypotension. Pt and son report that he hasn't been to his PCP in over a year and has not taken his medications in "a long time". Pt reports that he has been having difficulty swallowing for months and that he is unable to talk in the morning and his mouth is often dry. He reported weight loss of 100 pounds. Son report that he noticed a new left sided facial droop. In speaking with the patient, he does not notice a different in his face but he has visible left lower quadrant droop of face, upper quadrant does not appear to be impaired when asked for furrow in brow. 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 He has multiple risk factors including AFib, HLD, DM2 and this may be 2/2 to CVA that was not noticed earlier. Not likely Sullivan's Palsy as it does not effect upper quadrant of face. States no new events this past weekend. Has been doing facial exercises and well appearing today. Awake, alert, interactive with examiners. Active Medications Atorvastatin Calcium (Lipitor -) 20 mg PO HS [facility] Last Admin: 11/30/16 22:51 Dose: 20 mg Heparin Sodium (Porcine) (Heparin -) 5,000 unit SQ BID YVETTE Last Admin: 11/30/16 22:52 Dose: 5,000 unit Multivitamins/Minerals/Vitamin C (Tab-A-Vit -) 1 tab PO DAILY [facility]ETTE Last Admin: 11/30/16 09:54 Dose: 1 tab Polyethylene Glycol (Miralax (For Bowel Prep) -) 17 gm PO DAILY Y[facility]ETTE Last Admin: 11/30/16 09:54 Dose: 17 gm Last Vital Signs Temp Pulse Resp BP Pulse Ox 98.4 F 83 18 117/65 97 12/01/16 05:49 12/01/16 05:49 12/01/16 05:49 12/01/16 05:49 11/30/16 21:00 GENERAL: Awake, alert, and fully oriented, in no acute distress. HEAD: Normal with no signs of trauma. EYES: Pupils equal, round and reactive to light, extraocular movements intact, sclera anicteric, conjunctiva clear. No lid lag. EARS, NOSE, THROAT: Ears normal, nares patent, oropharynx clear without exudates. Dry mucous membranes. NECK: Normal range of motion, supple without lymphadenopathy, JVD, or masses. LUNGS: Breath sounds equal, clear to auscultation bilaterally. No wheezes, and no crackles. No accessory muscle use. HEART: Regular rate and rhythm, normal S1 and S2 without rub or gallop. + murmur 2/6 5th ICS, MCL ABDOMEN: Soft, nontender, not distended, normoactive bowel sounds, no guarding, no rebound, no masses. No hepatomegaly or splenomegaly. MUSCULOSKELETAL: Normal range of motion at all joints. No bony deformities or tenderness. No CVA tenderness. UPPER EXTREMITIES: 2+ pulses, warm, well-perfused. No cyanosis. No clubbing. No peripheral edema. LOWER EXTREMITIES: 2+ pulses, warm, well-perfused. No calf tenderness. No peripheral edema. NEUROLOGICAL: L facial droop, difficulty in speech, GARRY, EOMI, sensory intact , strength grossly intact PSYCHIATRIC: Cooperative. Good eye contact. Appropriate mood and affect. SKIN: Warm, dry, normal turgor, no rashes or lesions noted, normal capillary refill. CBCD WBC 4.3 K/mm3 (4.0-10.0) D 12/01/16 07:24 RBC 3.92 M/mm3 (4.00-5.60) L 12/01/16 07:24 Hgb 12.0 GM/dL (11.7-16.9) 12/01/16 07:24 Hct 35.8 % (35.4-49) 12/01/16 07:24 MCV 91.2 fl (80-96) 12/01/16 07:24 MCHC 33.4 g/dl (32.0-35.9) 12/01/16 07:24 RDW 14.2 % (11.9-15.9) 12/01/16 07:24 Plt Count 176 K/MM3 (134-434) 12/01/16 07:24 MPV 8.4 fl (7.5-11.1) 12/01/16 07:24 CMP Sodium 138 mmol/L (136-145) 12/01/16 07:24 Potassium 5.2 mmol/L (3.5-5.1) H D 12/01/16 07:24 Chloride 97 mmol/L (98-107) L 12/01/16 07:24 Carbon Dioxide 35 mmol/L (21-32) H 12/01/16 07:24 Anion Gap 6 (8-16) L 12/01/16 07:24 BUN 38 mg/dL (7-18) H 12/01/16 07:24 Creatinine 3.9 mg/dL (0.7-1.3) H 12/01/16 07:24 Creat Clearance w eGFR 14.70 (>60) 12/01/16 07:24 Calcium 8.4 mg/dL (8.5-10.1) L 12/01/16 07:24 Total Bilirubin 0.4 mg/dL (0.2-1.0) 12/01/16 07:24 AST 18 U/L (15-37) D 12/01/16 07:24 ALT 21 U/L (12-78) D 12/01/16 07:24 Alkaline Phosphatase 126 U/L (45-117) H 12/01/16 07:24 Total Protein 5.6 g/dl (6.4-8.2) L 12/01/16 07:24 Albumin 2.6 g/dl (3.4-5.0) L 12/01/16 07:[address] head without contrast Infarcts right basal ganglia that appear to be chronic and white matter changes most 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 If there is a clinical suspicion of acute cerebral ischemia, MRI of the brain or short-term followup CT imaging may be helpful for further evaluation. ASSESSMENT/PLAN: 86 year old male with a past medical history of ESRD/hemodialysis TThSa, Afib, CHF, HLD, DM2 who presented from his PCP office with hypotension. Pt and son report that he hasn't been to his PCP in over a year and has not taken his medications in "a long time". Pt reports that he has been having difficulty swallowing for months and that he is unable to talk in the morning and his mouth is often dry. He reported weight loss of 100 pounds. Son report that he noticed a new left sided facial droop. In speaking with the patient, he does not notice a different in his face but he has visible left lower quadrant droop of face, upper quadrant does not appear to be impaired when asked for furrow in brow. 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 He has multiple risk factors including AFib, HLD, DM2 and this may be 2/2 to CVA that was not noticed earlier. Not likely Sullivan's Palsy as it does not effect upper quadrant of face. Recommend risk factor minimization, maintain normal glycemic index. BP range 120 -140 systolic, optimize LDL (goal <70). Would recommend speech/swallow therapy. Facial exercises may be of some benefit. MRI not likely to be clinically helpful as CVA noted on CT head and is chronic, not acute, on imaging. Continue HD but monitor BP closely and avoidance of hypotensive episodes. Pt with Afib but not on AC (says it was stopped for dialysis) and would re-evaluate need for AC. Currently rate controlled. Facial exercises may have been helpful as patient seems to be improving. Would continue optimization of underlying conditions.
[2016-12-01] MEDS: HEPARIN NA (PORCINE) 5,000 UNITS/ML 1ML VIAL SQ SCH ×2 (10:29→22:39)
[2016-12-01] MEDS: POLYETHYLENE GLYCOL 3350 255 GM BTL PO SCH (10:30)
[2016-12-01] MEDS: MULTIVITAMINS (DAILY MVI) TABLET (FP) PO SCH (10:30)
--- NOTE | 2016-12-01 10:43 | PN ---
Progress Note, Physician History of Present Illness: seen and examined today in [facility]. no overnight events. no new complaints. - Current Medication List Current Medications: Active Medications Atorvastatin Calcium (Lipitor -) 20 mg PO HS [facility] Last Admin: 11/30/16 22:51 Dose: 20 mg Heparin Sodium (Porcine) (Heparin -) 5,000 unit SQ BID [facility] Last Admin: 12/01/16 10:29 Dose: 5,000 unit Multivitamins/Minerals/Vitamin C (Tab-A-Vit -) 1 tab PO DAILY [facility] Last Admin: 12/01/16 10:30 Dose: 1 tab Polyethylene Glycol (Miralax (For Bowel Prep) -) 17 gm PO DAILY [facility] Last Admin: 12/01/16 10:30 Dose: 17 gm - Objective Vital Signs: Vital Signs Temperature 97.4 F L 12/01/16 09:00 Pulse Rate 83 12/01/16 09:00 Respiratory Rate 19 12/01/16 09:00 Blood Pressure 118/67 12/01/16 09:00 O2 Sat by Pulse Oximetry (%) 100 12/01/16 09:00 Constitutional: Yes: No Distress, Calm Eyes: Yes: Conjunctiva Clear, EOM Intact HENT: Yes: Atraumatic, Normocephalic Neck: Yes: Supple, Trachea Midline Cardiovascular: Yes: Pulse Irregular, Murmur, S1, S2. No: Bradycardia, Tachycardia, Bruit, JVD, Gallop, Rub, S3, S4, Varicosities Respiratory: Yes: Regular, CTA Bilaterally. No: Rales, Rhonchi, Wheezes Gastrointestinal: Yes: Normal Bowel Sounds, Soft Edema: No Peripheral Pulses WNL: Yes Peripheral Pulses: Left Doralis Pedis: 2+, Right Dorsalis Pedis: 2+ Integumentary: Yes: WNL Neurological: Yes: Alert, Oriented Psychiatric: Yes: Alert, Oriented Labs: CBC, BMP 12/01/16 07:24 12/01/16 07:24 INR, PTT INR 1.15 (0.82-1.09) H 11/27/16 06:00 - ....Imaging Chest X-ray: Report Reviewed, Image Reviewed EKG: Report Reviewed, Image Reviewed Other: Report Reviewed, Image Reviewed (tele-AFib, HR adequately controlled, PVCs) Assessment/Plan 86 year old man with a history of ESRD on HD, Afib not on AC for over a year ( pt states stopped by a campus recruiting intern but 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 Peoples for hypotension, dysphagia, weight loss Afib-chronic -HR adequately controlled without AV vishnu blockers -pt states he was taken off AC in the past he believes due to bleeding with HD -d/w pts son Benjamín today, he does not know the full details of the reasons coumadin was stopped as pt does not share much information with him -given evidence of past/recent CVA's on head CT, sig risk of recurrent CVA if not on AC -need to further consider the risk vs benefit of full AC, given advanced age and recent fall -would be helpful to discuss with pts process operator as to exactly why AC was stopped Hypotension-improved -likely intravascular depletion secondary to poor po intake -received IVF hydration, BP improved -avoid anti-HTN medications -no obvious infection present -echo normal Ef, moderate Aortic stenosis- -moderate. -No further workup needed at this point
--- NOTE | 2016-12-01 10:46 | PN ---
Progress Note, BLOCK SORTER - Note Progress Note: Selected Entries 11/30/16 11/30/16 11/30/16 00:00 06:00 10:00 Breakfast Diet Tolerated Lunch Supper Temperature 97.5 F L 98.2 F 98.7 F 11/30/16 11/30/16 11/30/16 14:01 18:00 21:00 Breakfast 75% Diet Tolerated Well Lunch 75% Supper 100% 100% Temperature 98 F 97.6 F 11/30/16 12/01/16 12/01/16 22:00 01:55 05:49 Breakfast Diet Tolerated Lunch Supper Temperature 97.0 F L 97.3 F L 98.4 F 12/01/16 09:00 Breakfast Diet Tolerated Lunch Supper Temperature 97.4 F L Laboratory Tests 11/28/16 11/29/16 12/01/16 09:30 07:10 07:24 WBC 3.5 L D 3.2 L 4.3 D Pt reports tolerating diet well with an occasional cough. Reviewed with nursing. Pt doing well but dislikes hot cereal. Suggest RD f/u to provide substitution for hot cereal, and magic cup/ensure compact which he is reportedly not receiving. He had significant weight loss before admission. Continue swallowing tx upon d/c.
--- NOTE | 2016-12-01 14:14 | PN ---
Progress Note, Physician History of Present Illness: Pt seen and examined at bedside. He is awake and alert. He denies shortness of breath. - Current Medication List Current Medications: Active Medications Atorvastatin Calcium (Lipitor -) 20 mg PO HS [facility] Last Admin: 11/30/16 22:51 Dose: 20 mg Heparin Sodium (Porcine) (Heparin -) 5,000 unit SQ BID [facility] Last Admin: 12/01/16 10:29 Dose: 5,000 unit Multivitamins/Minerals/Vitamin C (Tab-A-Vit -) 1 tab PO DAILY [facility] Last Admin: 12/01/16 10:30 Dose: 1 tab Polyethylene Glycol (Miralax (For Bowel Prep) -) 17 gm PO DAILY [facility] Last Admin: 12/01/16 10:30 Dose: 17 gm - Objective Vital Signs: Vital Signs Temperature 97.4 F L 12/01/16 09:00 Pulse Rate 83 12/01/16 09:00 Respiratory Rate 19 12/01/16 09:00 Blood Pressure 118/67 12/01/16 09:00 O2 Sat by Pulse Oximetry (%) 100 12/01/16 09:00 Constitutional: Yes: Calm Eyes: Yes: Conjunctiva Clear HENT: Yes: Atraumatic Neck: Yes: Supple Cardiovascular: Yes: S1, S2 Respiratory: Yes: CTA Bilaterally Gastrointestinal: Yes: Soft Genitourinary: Yes: WNL Musculoskeletal: Yes: WNL Edema: No Neurological: Yes: Oriented Psychiatric: Yes: Oriented Labs: CBC, BMP 12/01/16 07:24 12/01/16 07:24 INR, PTT INR 1.15 (0.82-1.09) H 11/27/16 06:00 Problem List - Problems (1) Atrial fibrillation Code(s): I48.91 - UNSPECIFIED ATRIAL FIBRILLATION Qualifiers: Atrial fibrillation type: chronic Qualified Code(s): I48.2 - Chronic atrial fibrillation (2) CVA (cerebral vascular accident) Code(s): I63.9 - CEREBRAL INFARCTION, UNSPECIFIED Qualifiers: CVA mechanism: unspecified Qualified Code(s): I63.9 - Cerebral infarction, unspecified (3) ESRD (end stage renal disease) on dialysis Code(s): N18.6 - END STAGE RENAL DISEASE Z99.2 - DEPENDENCE ON RENAL DIALYSIS (4) HTN (hypertension) Code(s): I10 - ESSENTIAL (PRIMARY) HYPERTENSION Assessment/Plan Current Medications Generic Name Dose Route Start Last Admin Trade Name Ora PRN Reason Stop Dose Admin Atorvastatin Calcium 20 mg 11/27/16 22:00 11/30/16 22:51 Lipitor - PO 20 mg HS [facility]TE Administration Heparin Sodium (Porcine) 5,000 unit 11/26/16 22:00 12/01/16 10:29 Heparin - SQ 5,000 unit BID [facility]ETTE Administration Multivitamins/Minerals/Vitamin C 1 tab 11/28/16 10:00 12/01/16 10:30 Tab-A-Vit - PO 1 tab DAILY [facility] Administration Polyethylene Glycol 17 gm 11/28/16 10:00 12/01/16 10:30 Miralax (For Bowel Prep) - PO 17 gm DAILY [facility] Administration Impression 1. ESRD 2. a-fib 3. failure to thrive 4. dysphagia 5. hyperlipidemia 6. hypotension 7. weight loss 8. CAD Plan - HD in am - renal diet - cont current meds - discussed care with pt and his son - pt/rehab once stable - will follow Dr Alcantar
--- NOTE | 2016-12-01 18:18 | PN ---
Physical Exam: SUBJECTIVE: Patient seen and examined at the bedside. OBJECTIVE: Vital Signs Period Temp Pulse Resp BP Sys/Luo Pulse Ox Last 24 Hr 97.0 F-98.4 F 61-95 18-20 103-183/56-72 97-100 GENERAL: The patient is awake, alert, and fully oriented, in no acute distress. HEAD: Normal with no signs of trauma EYES: PERRL, extraocular movements intact, sclera anicteric, conjunctiva clear. No ptosis. ENT: Ears normal, nares patent, oropharynx clear without exudates, moist mucous membranes. NECK: Trachea midline, full range of motion, supple. LUNGS: Breath sounds equal, clear to auscultation bilaterally, no wheezes, ABDOMEN: Soft, nontender, nondistended, normoactive bowel sounds, no guarding, no rebound, no hepatosplenomegaly, no masses. EXTREMITIES: Left upper ext +bruit + thrill NEUROLOGICAL: Normal speech, gait not observed. PSYCH: Normal mood, normal affect. Laboratory Results - last 24 hr 12/01/16 12/01/16 07:24 07:24 WBC 4.3 D RBC 3.92 L Hgb 12.0 Hct 35.8 MCV 91.2 MCH 30.5 MCHC 33.4 RDW 14.2 Plt Count 176 MPV 8.4 Neutrophils % 67.4 Lymphocytes % 25.1 D Monocytes % 4.9 Eosinophils % 1.8 Basophils % 0.8 Sodium 138 Potassium 5.2 H D Chloride 97 L Carbon Dioxide 35 H Anion Gap 6 L BUN 38 H Creatinine 3.9 H Creat Clearance w eGFR 14.70 Random Glucose 71 L D Calcium 8.4 L Total Bilirubin 0.4 AST 18 D ALT 21 D Alkaline Phosphatase 126 H Total Protein 5.6 L Albumin 2.6 L Active Medications Generic Name Dose Route Start Last Admin Trade Name Freq PRN Reason Stop Dose Admin Atorvastatin Calcium 20 mg 11/27/16 22:00 11/30/16 22:51 Lipitor - PO 20 mg HS YVETTE Administration Heparin Sodium (Porcine) 5,000 unit 11/26/16 22:00 12/01/16 10:29 Heparin - SQ 5,000 unit BID YVETTE Administration Heparin Sodium (Porcine) 500 unit 12/02/16 14:15 Heparin - IVPUSH 12/02/16 16:16 Q1H YVETTE Heparin Sodium (Porcine) 1,000 unit 12/01/16 14:30 Heparin - IVPUSH 12/01/16 14:31 ONCE ONE Multivitamins/Minerals/Vitamin C 1 tab 11/28/16 10:00 12/01/16 10:30 Tab-A-Vit - PO 1 tab DAILY YVETTE Administration Polyethylene Glycol 17 gm 11/28/16 10:00 12/01/16 10:30 Miralax (For Bowel Prep) - PO 17 gm DAILY YVETTE Administration ASSESSMENT/PLAN: Patient is an 86 year old male with a significant past medical history of ESRD on HD TTS schedule, atrial fibrillation (not on any anticoagulation), hypertension and diabetes. He was sent to the ER by his PCP for hypotension, dysphagia and poor PO intake. Cardiology: Hypotension - improving A/P: BP improving, goal rate systolic 120s to 140s Continue to hold all home antihypertensive Cardiology clearance prior to d/c Atrial fibrillation - chronic A/P: No on any anticoags, unclear as to why it was d/monique Pt is high risk for recurrent CVAs Risk for falls as well Anticoagulation therapy as per cardiology Neuro: Left facial droop A/P: Seen by neurologist Notes reviewed, facial droop not acute Failure to thrive: Dysphagia/Poor PO intake A/P: On dysphagia pureed/nectar consistency Aspiration risk Encourage PO intake and supplements Renal ESRD - chronic A/P: dialysis via left upper arm fistula On a schedule For dialysis tomorrow F.E.N. Fluids: tolerating PO Electrolytes: monitor Nutrition: Pureed/nectar thick, increase caloric intake - renal diet Severe Protein Caloric malnutrition A/P: In the setting of the patient with dysphagia/poor po intake As evidenced by 14.5% weight loss x 1 year and 49% x 2 years He has swallowing difficulties as evidenced by swallow eval/mbs notes He has impaired ability to prepare foods secondary to poor functional status and advanced age Increase caloric intake, encourage PO intake and supplements with Nepro Monitor weights Prophylaxis: DVT: heparin BID GI: deferred Disposition: Requires inpatient hospitalization. Full Code. Visit type - Emergency Visit Emergency Visit: Yes ED Registration Date: 11/26/16 Care time: The patient presented to the Emergency Department on the above date and was hospitalized for further evaluation of their emergent condition. - New Patient This patient is new to me today: Yes Date on this admission: 12/07/16 - Critical Care Critical Care patient: No - Discharge Referral Referred to [facility] No
[2016-12-01] MEDS: ATORVASTATIN CA 20 MG TABLET (FP) PO SCH (22:39)
[2016-12-02] MEDS ORDERED: HEPARIN NA (PORCINE) 5,000 UNITS/ML 1ML VIAL IVPUSH ONE ×2 (06:45→14:15)
[2016-12-02] MEDS ORDERED: HEPARIN NA (PORCINE) 5,000 UNITS/ML 1ML VIAL IVPUSH SCH (06:45)
[2016-12-02 07:45] LABS: BASOPHIL 0.8 % (0-2.0); EOSINOPHIL 1.5 % (0-4.5); MEAN CELL VOLUME 90.8 fl (80-96); MEAN PLT VOLUME 8.3 fl (7.5-11.1); PLATELET COUNT 154 K/MM3 (134-434); RDW 14.4 % (11.9-15.9); WHITE BLOOD COUNT 5.8 K/mm3 (4.0-10.0)
[2016-12-02 08:15] LABS: ALBUMIN 2.6 g/dl (3.4-5.0); ANION GAP 9 (8-16); CALCIUM 8.1 mg/dL (8.5-10.1); CO2 33 mmol/L (21-32)
[2016-12-02 08:20] LABS: ALK PHOS 133 U/L (45-117); BILIRUBIN,TOTAL 0.5 mg/dL (0.2-1.0); CREATININE 4.9 mg/dL (0.7-1.3); GLUCOSE,RANDOM 67 mg/dL (74-106); SGOT/AST 14 U/L (15-37); SGPT/ALT 21 U/L (12-78); TOT PROT 5.7 g/dl (6.4-8.2)
[2016-12-02 09:25] LABS: MCH 29.8 pg (25.7-33.7); MCHC 32.9 g/dl (32.0-35.9); MEAN CELL VOLUME 90.5 fl (80-96); MEAN PLT VOLUME 8.7 fl (7.5-11.1); PLATELET COUNT 161 K/MM3 (134-434); RDW 14.3 % (11.9-15.9); WHITE BLOOD COUNT 5.8 K/mm3 (4.0-10.0)
[2016-12-02 09:54] LABS: ANION GAP 7 (8-16); CALCIUM 8.5 mg/dL (8.5-10.1); CO2 31 mmol/L (21-32); CREATININE 4.9 mg/dL (0.7-1.3); GLUCOSE,RANDOM 88 mg/dL (74-106)
[2016-12-02] MEDS: HEPARIN NA (PORCINE) 5,000 UNITS/ML 1ML VIAL SQ SCH (10:26)
--- NOTE | 2016-12-02 10:42 | PN ---
Progress Note (short form) - Note Progress Note: Neurology HISTORY OF PRESENT ILLNESS: This is an 86 year old male with a past medical history of ESRD/hemodialysis TThSa, Afib, CHF, HLD, DM2 who presented from his PCP office with hypotension. Pt and son report that he hasn't been to his PCP in over a year and has not taken his medications in "a long time". Pt reports that he has been having difficulty swallowing for months and that he is unable to talk in the morning and his mouth is often dry. He reported weight loss of 100 pounds. Son report that he noticed a new left sided facial droop. In speaking with the patient, he does not notice a different in his face but he has visible left lower quadrant droop of face, upper quadrant does not appear to be impaired when asked for furrow in brow. 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 He has multiple risk factors including AFib, HLD, DM2 and this may be 2/2 to CVA that was not noticed earlier. Not likely Sullivan's Palsy as it does not effect upper quadrant of face. Getting HD today and no complaints. Nurse at bedside reports he gets confusion after HD and we discussed monitoring for mental status changes. Has been doing facial exercises and well appearing today. Awake, alert, interactive with examiners. Active Medications Atorvastatin Calcium (Lipitor -) 20 mg PO HS [facility] Last Admin: 12/01/16 22:39 Dose: 20 mg Heparin Sodium (Porcine) (Heparin -) 5,000 unit SQ BID [facility] Last Admin: 12/02/16 10:26 Dose: Not Given Multivitamins/Minerals/Vitamin C (Tab-A-Vit -) 1 tab PO DAILY [facility] Last Admin: 12/01/16 10:30 Dose: 1 tab Polyethylene Glycol (Miralax (For Bowel Prep) -) 17 gm PO DAILY [facility] Last Admin: 12/01/16 10:30 Dose: 17 gm Last Vital Signs Temp Pulse Resp BP Pulse Ox 98.2 F 94 H 16 90/53 97 12/02/16 06:00 12/02/16 10:00 12/02/16 10:00 12/02/16 10:00 12/01/16 22:00 GENERAL: Awake, alert, and fully oriented, in no acute distress. HEAD: Normal with no signs of trauma. EYES: Pupils equal, round and reactive to light, extraocular movements intact, sclera anicteric, conjunctiva clear. No lid lag. EARS, NOSE, THROAT: Ears normal, nares patent, oropharynx clear without exudates. Dry mucous membranes. NECK: Normal range of motion, supple without lymphadenopathy, JVD, or masses. LUNGS: Breath sounds equal, clear to auscultation bilaterally. No wheezes, and no crackles. No accessory muscle use. HEART: Regular rate and rhythm, normal S1 and S2 without rub or gallop. + murmur 2/6 5th ICS, MCL ABDOMEN: Soft, nontender, not distended, normoactive bowel sounds, no guarding, no rebound, no masses. No hepatomegaly or splenomegaly. MUSCULOSKELETAL: Normal range of motion at all joints. No bony deformities or tenderness. No CVA tenderness. UPPER EXTREMITIES: 2+ pulses, warm, well-perfused. No cyanosis. No clubbing. No peripheral edema. LOWER EXTREMITIES: 2+ pulses, warm, well-perfused. No calf tenderness. No peripheral edema. NEUROLOGICAL: L facial droop, difficulty in speech, GARRY, EOMI, sensory intact , strength grossly intact PSYCHIATRIC: Cooperative. Good eye contact. Appropriate mood and affect. SKIN: Warm, dry, normal turgor, no rashes or lesions noted, normal capillary refill. CBCD WBC 5.8 K/mm3 (4.0-10.0) 12/02/16 07:30 RBC 3.95 M/mm3 (4.00-5.60) L 12/02/16 07:30 Hgb 11.8 GM/dL (11.7-16.9) 12/02/16 07:30 Hct 35.7 % (35.4-49) 12/02/16 07:30 MCV 90.5 fl (80-96) 12/02/16 07:30 MCHC 32.9 g/dl (32.0-35.9) 12/02/16 07:30 RDW 14.3 % (11.9-15.9) 12/02/16 07:30 Plt Count 161 K/MM3 (134-434) 12/02/16 07:30 MPV 8.7 fl (7.5-11.1) 12/02/16 07:30 CMP Sodium 135 mmol/L (136-145) L 12/02/16 07:30 Potassium 5.0 mmol/L (3.5-5.1) 12/02/16 07:30 Chloride 97 mmol/L (98-107) L 12/02/16 07:30 Carbon Dioxide 31 mmol/L (21-32) 12/02/16 07:30 Anion Gap 7 (8-16) L 12/02/16 07:30 BUN 52 mg/dL (7-18) H 12/02/16 07:30 Creatinine 4.9 mg/dL (0.7-1.3) H 12/02/16 07:30 Creat Clearance w eGFR 11.29 (>60) 12/02/16 06:00 Calcium 8.5 mg/dL (8.5-10.1) 12/02/16 07:30 Total Bilirubin 0.5 mg/dL (0.2-1.0) D 12/02/16 06:00 AST 14 U/L (15-37) L D 12/02/16 06:00 ALT 21 U/L (12-78) 12/02/16 06:00 Alkaline Phosphatase 133 U/L (45-117) H 12/02/16 06:00 Total Protein 5.7 g/dl (6.4-8.2) L 12/02/16 06:00 Albumin 2.6 g/dl (3.4-5.0) L 12/02/16 06:[address] head without contrast Infarcts right basal ganglia that appear to be chronic and white matter changes most 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 If there is a clinical suspicion of acute cerebral ischemia, MRI of the brain or short-term followup CT imaging may be helpful for further evaluation. ASSESSMENT/PLAN: 86 year old male with a past medical history of ESRD/hemodialysis TThSa, Afib, CHF, HLD, DM2 who presented from his PCP office with hypotension. Pt and son report that he hasn't been to his PCP in over a year and has not taken his medications in "a long time". Pt reports that he has been having difficulty swallowing for months and that he is unable to talk in the morning and his mouth is often dry. He reported weight loss of 100 pounds. Son report that he noticed a new left sided facial droop. In speaking with the patient, he does not notice a different in his face but he has visible left lower quadrant droop of face, upper quadrant does not appear to be impaired when asked for furrow in brow. 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 He has multiple risk factors including AFib, HLD, DM2 and this may be 2/2 to CVA that was not noticed earlier. Not likely Sullivan's Palsy as it does not effect upper quadrant of face. Per records, likely there previously. Recommend risk factor minimization, maintain normal glycemic index. BP range 120-140 systolic, optimize LDL (goal < 70). Would recommend speech/swallow therapy. Facial exercises have been beneficial. Continue HD but monitor BP closely and avoidance of hypotensive episodes. Pt with Afib but not on AC (says it was stopped for dialysis) currently rate controlled.
[2016-12-02 12:29] LABS: CREATININE 1.6 mg/dL (0.7-1.3)
--- NOTE | 2016-12-02 13:03 | PN ---
Progress Note, [employer] - Note Progress Note: Selected Entries 12/01/16 12/01/16 12/01/16 01:55 05:49 09:00 Breakfast Supper Temperature 97.3 F L 98.4 F 97.4 F L 12/01/16 12/01/16 12/01/16 15:37 16:31 18:00 Breakfast 75% Supper Temperature 97.2 F L 98.3 F 12/01/16 12/01/16 12/02/16 22:00 22:22 02:00 Breakfast Supper 75% 75% Temperature 98.5 F 97.4 F L 12/02/16 12/02/16 06:00 10:00 Breakfast Supper Temperature 98.2 F 98.4 F Laboratory Tests 12/01/16 12/02/16 07:24 06:00 WBC 4.3 D 5.8 D Tolerating diet with fairly good appetite. Case reviewed with RD. Continue Nepro as best supplement for HD pt. Pending d/c to [facility]. Suggest swallowing tx upon d/c with continued compensatory strategies and pharyngeal swallowing exercises including Brandi, effortful swallow,etc
[2016-12-02] MEDS: POLYETHYLENE GLYCOL 3350 255 GM BTL PO SCH (14:12)
[2016-12-02] MEDS: MULTIVITAMINS (DAILY MVI) TABLET (FP) PO SCH (14:12)
--- NOTE | 2016-12-02 14:59 | PN ---
Progress Note, Physician History of Present Illness: Pt seen and examined at bedside. He is awake and alert. He tolerated HD today. - Current Medication List Current Medications: Active Medications Atorvastatin Calcium (Lipitor -) 20 mg PO HS [facility] Last Admin: 12/01/16 22:39 Dose: 20 mg Heparin Sodium (Porcine) (Heparin -) 5,000 unit SQ BID [facility] Last Admin: 12/02/16 10:26 Dose: Not Given Multivitamins/Minerals/Vitamin C (Tab-A-Vit -) 1 tab PO DAILY [facility] Last Admin: 12/02/16 14:12 Dose: 1 tab Polyethylene Glycol (Miralax (For Bowel Prep) -) 17 gm PO DAILY [facility] Last Admin: 12/02/16 14:12 Dose: 17 gm Warfarin Sodium (Coumadin -) 5 mg PO DAILY@1800 [facility] - Objective Vital Signs: Vital Signs Temperature 98.4 F 12/02/16 10:00 Pulse Rate 85 12/02/16 11:00 Respiratory Rate 16 12/02/16 11:00 Blood Pressure 105/66 12/02/16 11:00 O2 Sat by Pulse Oximetry (%) 97 12/02/16 10:00 Constitutional: Yes: Calm Eyes: Yes: Conjunctiva Clear HENT: Yes: Atraumatic Neck: Yes: Supple Cardiovascular: Yes: S1, S2 Respiratory: Yes: CTA Bilaterally Gastrointestinal: Yes: Soft Genitourinary: Yes: WNL Musculoskeletal: Yes: WNL Edema: No Neurological: Yes: Oriented Psychiatric: Yes: Oriented Labs: CBC, BMP 12/02/16 07:30 12/02/16 11:00 INR, PTT INR 1.15 (0.82-1.09) H 11/27/16 06:00 Problem List - Problems (1) Atrial fibrillation Code(s): I48.91 - UNSPECIFIED ATRIAL FIBRILLATION Qualifiers: Atrial fibrillation type: chronic Qualified Code(s): I48.2 - Chronic atrial fibrillation (2) CVA (cerebral vascular accident) Code(s): I63.9 - CEREBRAL INFARCTION, UNSPECIFIED Qualifiers: CVA mechanism: unspecified Qualified Code(s): I63.9 - Cerebral infarction, unspecified (3) ESRD (end stage renal disease) on dialysis Code(s): N18.6 - END STAGE RENAL DISEASE Z99.2 - DEPENDENCE ON RENAL DIALYSIS (4) HTN (hypertension) Code(s): I10 - ESSENTIAL (PRIMARY) HYPERTENSION Assessment/Plan Current Medications Generic Name Dose Route Start Last Admin Trade Name Ora PRN Reason Stop Dose Admin Atorvastatin Calcium 20 mg 11/27/16 22:00 12/01/16 22:39 Lipitor - PO 20 mg HS YVETTE Administration Heparin Sodium (Porcine) 5,000 unit 11/26/16 22:00 12/02/16 10:26 Heparin - SQ Not Given BID YVETTE Multivitamins/Minerals/Vitamin C 1 tab 11/28/16 10:00 12/02/16 14:12 Tab-A-Vit - PO 1 tab DAILY YVETTE Administration Polyethylene Glycol 17 gm 11/28/16 10:00 12/02/16 14:12 Miralax (For Bowel Prep) - PO 17 gm DAILY YVETTE Administration Warfarin Sodium 5 mg 12/02/16 18:00 Coumadin - PO DAILY@1800 YVETTE Impression 1. ESRD 2. a-fib 3. failure to thrive 4. dysphagia 5. hyperlipidemia 6. hypotension 7. weight loss 8. CAD Plan - pt tolerated HD - AC per cardio, discussed with cardio - cont current meds - pt/rehab once stable - will follow Dr Alcantar
--- NOTE | 2016-12-02 15:05 | DS ---
Physical Exam: SUBJECTIVE: Patient seen and examined during dialysis. Patient denies any dizziness, nausea or chest pain. OBJECTIVE: Started on Coumadin by cardiology Will need to have INR checked at Rehab d/c to rehab today Vital Signs Period Temp Pulse Resp BP Sys/Luo Pulse Ox Last 24 Hr 97.2 F-98.5 F 50-938 16-20 90-183/53-86 97-97 PHYSICAL EXAM GENERAL: The patient is awake, alert, and fully oriented, in no acute distress. HEAD: Normal with no signs of trauma EYES: PERRL, extraocular movements intact, sclera anicteric, conjunctiva clear. No ptosis. ENT: Ears normal, nares patent, oropharynx clear without exudates, moist mucous membranes. NECK: Trachea midline, full range of motion, supple. LUNGS: Breath sounds equal, clear to auscultation bilaterally, no wheezes, ABDOMEN: Soft, nontender, nondistended, normoactive bowel sounds, no guarding, no rebound, no hepatosplenomegaly, no masses. EXTREMITIES: Left upper ext +bruit + thrill NEUROLOGICAL: Normal speech, gait not observed. PSYCH: Normal mood, normal affect. LABS Laboratory Results - last 24 hr 12/02/16 12/02/16 12/02/16 06:00 06:00 07:30 WBC 5.8 D RBC 3.91 L Hgb 11.7 Hct 35.5 MCV 90.8 MCH 30.0 MCHC 33.0 RDW 14.4 Plt Count 154 MPV 8.3 Neutrophils % 75.0 Lymphocytes % 18.1 D Monocytes % 4.6 Eosinophils % 1.5 Basophils % 0.8 Sodium 137 135 L Potassium 5.1 5.0 Chloride 95 L 97 L Carbon Dioxide 33 H 31 Anion Gap 9 7 L BUN 50 H D 52 H Creatinine 4.9 H D 4.9 H Creat Clearance w eGFR 11.29 POC Glucometer Random Glucose 67 L 88 D Calcium 8.1 L 8.5 Total Bilirubin 0.5 D AST 14 L D ALT 21 Alkaline Phosphatase 133 H Total Protein 5.7 L Albumin 2.6 L 12/02/16 12/02/16 12/02/16 07:30 11:00 11:46 WBC 5.8 RBC 3.95 L Hgb 11.8 Hct 35.7 MCV 90.5 MCH 29.8 MCHC 32.9 RDW 14.3 Plt Count 161 MPV 8.7 Neutrophils % Lymphocytes % Monocytes % Eosinophils % Basophils % Sodium Potassium Chloride Carbon Dioxide Anion Gap BUN 13 D Creatinine 1.6 H D Creat Clearance w eGFR POC Glucometer 113 Random Glucose Calcium Total Bilirubin AST ALT Alkaline Phosphatase Total Protein Albumin HOSPITAL COURSE: Date of Admission:11/26/16 Date of Discharge: 12/02/16 ASSESSMENT/PLAN: Patient is an 86 year old male with a significant past medical history of ESRD on HD TTS schedule, atrial fibrillation (not on any anticoagulation), hypertension and diabetes. He was sent to the ER by his PCP for hypotension, dysphagia and poor PO intake. Cardiology: Hypertension - improving - continue to hold Metoprolol A/P: BP improving, goal rate systolic 120s to 140s Cardiology cleared for d/c Monitor BP at rehab facility Atrial fibrillation - chronic A/P: Started on Coumadin 5mg tonight Goal INR 2-3, monitor INR in rehab within 2 days after initial dose and adjust as needed to maintain INR between 2-3 Fall risk, monitor closely Neuro: Left facial droop A/P: Seen by neurologist Notes reviewed, facial droop not acute Failure to thrive: Dysphagia/Poor PO intake A/P: On dysphagia pureed/nectar consistency Aspiration risk, Encourage PO intake and Nephro supplements Monitor caloric intake at rehab Renal ESRD - chronic A/P: dialysis via left upper arm fistula On a schedule, dialysis today, tolerated it well Disposition: Discharge to rehab. Full code. Minutes to complete discharge: 60 Discharge Summary Reason For Visit: ESRD ON DIALYSIS Current Active Problems Aortic stenosis (Acute) Atrial fibrillation (Acute) CVA (cerebral vascular accident) (Acute) Dehydration (Acute) ESRD (end stage renal disease) on dialysis (Acute) Condition: Improved - Instructions Diet, Activity, Other Instructions: Mr. Mancilla: You were admitted to [facility] for hypotensive (low blood pressure). Your Metoprolol has been stopped and will not be restarted on discharge. You have been started on Coumadin 5mg today by the attending director of placement at [facility]. Your private director of placement is aware of this new medication. Goal INR levels between (2-3). Monitor Coumadin levels within two days of discharge to help achieve the goal INR between (2-3). Please call me with any questions that you may have Diet recommendations on discharge: - Dysphasia pureed diet with nectar thick consistency - Aspiration precautions - Nephro supplements BID - Magic cup and Ensure compact - Monitor intake and output - Monitor weights Discontinue the Metoprolol home medications secondary to hypotension. Monitor BP during dialysis [facility] [phone] Referrals: Leandro Peoples MD [Primary Care Provider] - Disposition: RESIDENTIAL FACILITY - Home Medications Comprehensive Discharge Medication List: Ambulatory Orders Beta-Carotene(A) W-C and E/Min 1 tab PO DAILY 11/27/16 Polyethylene Glycol 3350 [Miralax 255 gm Btl -] 17 grams PO DAILY 11/27/16 Simvastatin [Zocor -] 40 mg PO DAILY 11/27/16 Theragen 1 tablet PO DAILY 11/27/16 Warfarin Na [Coumadin -] 5 mg PO DAILY@1800 #30 tablet 12/02/16 This patient is new to me today: No Emergency Visit: Yes ED Registration Date: 11/26/16 Care time: The patient presented to the Emergency Department on the above date and was hospitalized for further evaluation of their emergent condition. Critical Care patient: No - Discharge Referral [facility]erred to [facility] No
[2016-12-02 16:28] VITALS: BP 97/57; PULSE 96; TEMP 98.2
--- NOTE | 2016-12-02 16:37 | PN ---
Progress Note, Physician History of Present Illness: seen and examined today in [facility]. no overnight events. no new complaints. - Current Medication List Current Medications: Active Medications Atorvastatin Calcium (Lipitor -) 20 mg PO HS [facility] Last Admin: 12/01/16 22:39 Dose: 20 mg Heparin Sodium (Porcine) (Heparin -) 5,000 unit SQ BID [facility] Last Admin: 12/02/16 10:26 Dose: Not Given Multivitamins/Minerals/Vitamin C (Tab-A-Vit -) 1 tab PO DAILY [facility] Last Admin: 12/02/16 14:12 Dose: 1 tab Polyethylene Glycol (Miralax (For Bowel Prep) -) 17 gm PO DAILY [facility] Last Admin: 12/02/16 14:12 Dose: 17 gm Warfarin Sodium (Coumadin -) 5 mg PO DAILY@1800 [facility] - Objective Vital Signs: Vital Signs Temperature 98.2 F 12/02/16 15:00 Pulse Rate 96 H 12/02/16 15:00 Respiratory Rate 18 12/02/16 15:00 Blood Pressure 97/57 12/02/16 15:00 O2 Sat by Pulse Oximetry (%) 97 12/02/16 10:00 Constitutional: Yes: No Distress, Calm, Thin Eyes: Yes: Conjunctiva Clear, EOM Intact, PERRL HENT: Yes: Atraumatic, Normocephalic Neck: Yes: Supple, Trachea Midline Cardiovascular: Yes: Pulse Irregular, Murmur, S1, S2. No: Regular Rate and Rhythm, Bradycardia, Tachycardia, Bruit, JVD, Gallop, Rub, S3, S4, Varicosities Respiratory: Yes: Regular, Diminished. No: Rales, Rhonchi, SOB, Wheezes Gastrointestinal: Yes: Normal Bowel Sounds, Soft. No: Distention, Tenderness Musculoskeletal: Yes: Muscle Weakness Edema: No Peripheral Pulses WNL: Yes Peripheral Pulses: Left Doralis Pedis: 2+, Right Dorsalis Pedis: 2+ Integumentary: Yes: WNL Neurological: Yes: Alert, Oriented Psychiatric: Yes: Alert, Oriented Labs: CBC, BMP 12/02/16 07:30 12/02/16 11:00 INR, PTT INR 1.15 (0.82-1.09) H 11/27/16 06:00 - ....Imaging Chest X-ray: Report Reviewed, Image Reviewed EKG: Report Reviewed, Image Reviewed Other: Report Reviewed, Image Reviewed (tele-AFib, HR controlled) Assessment/Plan 86 year old man with a history of ESRD on HD, Afib not on AC for over a year ( pt states stopped by a hog driver but 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 Peoples for hypotension, dysphagia, weight loss Afib-chronic -HR adequately controlled without AV vishnu blockers -discussed again with pt who states again that his community pharmacist took him off coumadin a year or more ago. Called pts community pharmacist Dr. Fuller who confirmed that he stopped his coumadin because of concern that Risk > benefit (elderly man with fall risk on HD) not because of a bleeding event. -Discussed again with pts son Benjamín extensively regarding the risks vs benefits vs alternatives, as pt is going to rehab and likely to [facility] after that the risk of fall is decreased as oppossed to him going home alone. Thus at this time will start coumadin without heparin bridging and this will be an evolving decision based on his course at rehab. if he is still considered a significant fall risk based on his rehab course then would strongly consider discontinuation of coumadin. -difficult decision but in light of discovered recent CVA's his risk of recurrent CVA is significant enough -pt is acceptable for discharge to rehab from a cardiac standpoint and INR can be monitored there with adjustment in coumadin as needed. -if pt goes home after rehab he needs very close outpatient follow up -pts son Benjamín fully understands all of the above and is in agreement and will f/ up with this when pt is at rehab Hypotension-improved but chronic, confirmed by his outpatient community pharmacist -avoid anti-HTN medications -midodrine if needed -no obvious infection present -echo normal Ef, moderate Aortic stenosis- -moderate. -No further workup needed at this point
[2016-12-02] MEDS ORDERED: WARFARIN NA 5 MG TABLET (UD) PO SCH (18:00)
== END 2016-12-02 17:30 | DRG 314 ==
LOC: FER 15:31 → J4S 22:00
PROVIDERS: ADMIT Internal Medicine; ATTEND Nurse Practitioner Family
PROC: 5A1D60Z (ICD-10-PCS; principal; 2016-11-27)
DX: I95.9 Hypotension, unspecified (principal); N18.6 End stage renal disease; I13.2 Hypertensive heart and chronic kidney disease with heart failure and with stage 5 chronic kidney disease, or end stage renal disease; E86.0 Dehydration; R13.10 Dysphagia, unspecified; F03.90 Unspecified dementia, unspecified severity, without behavioral disturbance, psychotic disturbance, mood disturbance, and anxiety; I48.2 Chronic atrial fibrillation; E11.22 Type 2 diabetes mellitus with diabetic chronic kidney disease; I50.9 Heart failure, unspecified; Z99.2 Dependence on renal dialysis; E78.5 Hyperlipidemia, unspecified; I35.0 Nonrheumatic aortic (valve) stenosis; R62.7 Adult failure to thrive; I25.10 Atherosclerotic heart disease of native coronary artery without angina pectoris; R29.810 Facial weakness; Z88.0 Allergy status to penicillin
CPT/HCPCS: 36415; 70450-TC; 71010-TC; 74230-TC; 80048; 80053; 82565; 83036; 83735; 84100; 84484; 84520; 85025; 85027; 85610; 86704; 86706; 86708; 86803; 87340; 92611-GN; 93005; 93306-TC; 97116-GP; 97161-GP; 99282-25; J1644